=== PATIENT | female | born 1950 | race Caucasian/White ===

== ENCOUNTER → 2017-04-28 | Day surgery (SDC) | payer MEDICARE ==
[~2017-04-28] VITALS: Ht 160 cm; Wt 66.0 kg
[~2017-04-28] MED LIST: ACYC1POW8 PO; ASPI81TA81 PO; BUPIVACAINE HCL PF 0.5% 30 ML VIAL NERV BLOCK ONE; BUPIVACAINE HCL PF 0.5% 30 ML VIAL ONE; COQ150CA PO; DEXT 5%-NACL 0.45% 1000 ML INJ 1,000 ML IV SCH; DICY10CA12 PO; FAMOTIDINE 20 MG/2 ML VIAL ONE; GABA100C4 PO; IBUP800T23 PO; LACTATED RINGER'S 1000 ML INJ 1,000 ML ONE; LOSA100T PO; LOVA10TA PO; METF500T PO; MIDAZOLAM HCL 5 MG/5 ML VIAL ONE; MONT10TA4 PO; NORC5TAB PO; OMEP20CA2 PO; ONDANSETRON HCL 4 MG/2 ML VIAL IV PUSH ONE; POTA99TA12 PO; PROPOFOL 200 MG/20 ML AMP IV ONE; SERT-132 PO; SODIUM CHLORIDE 0.9% FLUSH 5 ML FLUSH IVF PRN; SODIUM CHLORIDE 0.9% FLUSH 5 ML FLUSH IVF SCH; ceFAZolin 2 GM PREMIX 50 ML ONE; ePHEDrine/NS 25 MG/5 ML SYR IV ONE; fentaNYL CITRATE 250 MCG/5 ML AMP ONE
[2017-04-28 06:51] VITALS: PULSE 65
[2017-04-28 07:33] LABS: HEMATOCRIT 38.7 % (35.0-46.0); MEAN CELL VOLUME 92.5 FL (80.0-100.0); MEAN CORPUSCULAR HEMOGLOBIN 31.5 PG (27.0-34.0); PLATELET COUNT 314 TH/MM3 (150-450); RED BLOOD COUNT 4.18 MIL/MM3 (4.00-5.30); RED CELL DISTRIBUTION WIDTH 13.3 % (11.6-17.2); REVIEW FLAG FINAL; WHITE BLOOD COUNT 7.1 TH/MM3 (4.0-11.0)
[2017-04-28 07:37] VITALS: BP 143/73; PULSE 65; RESP 18; TEMP 98.2; O2SAT 94
--- NOTE | 2017-04-28 07:55 | HP.UPD ---
H&P Update Date: Apr 28, 2017 Note The Pre-Admit History and Physical Examination regarding the above named patient was reviewed (including, but not limited to, vital signs, medications, allergies, co-morbid conditions), and upon re-examination it is noted that: Indicated with "X" x - the patient's condition has not significantly changed since the last examination. [] - the patient's condition has changed since the last examination. Changes: Shreya Elliott MD Apr 28, 2017 07:54
[2017-04-28 08:05] VITALS: PULSE 62
--- NOTE | 2017-04-28 09:55 | HHI.PR ---
Immediate Post Op Note Procedure Date: Apr 28, 2017 Pre Op Diagnosis: (1) Osteoarthritis of hand, primary localized Post Op Diagnosis: (1) Osteoarthritis of hand, primary localized Surgeon: Shreya Elliott Technical Project Manager(s): None. Procedure: Interpositional arthroplasty of left thumb carpometacarpal joint with tendon transfer. Anesthesia: General Drains: None Tourniquet time (min at mmHg) 57 minutes at 220 mmHg Patient to: PACU Patient Condition: Good Date/Time of Procedure: SEE SURGICAL CARE RECORD Shreya Elliott MD Apr 28, 2017 09:55
[2017-04-28 11:45] VITALS: BP 149/75; PULSE 85; RESP 16; TEMP 97.5; O2SAT 94
--- NOTE | 2017-04-28 13:28 | MP ---
cc: YOANA MATTA M.D. 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 PROCEDURE 1. Interposition arthroplasty of the left thumb carpometacarpal joint. 2. Tendon transfer to the left thumb carpometacarpal joint. ANESTHESIA General. SURGEON Yoana Matta MD INDICATIONS A 67-year-old female with severe degenerative joint disease of the left thumb CMC joint which did not respond to conservative management. FINDINGS There was a significant amount of arthrosis between the trapezium and the base of the thumb metacarpal. At the completion of the procedure the trapezium had been completely removed and a suspension arthroplasty effected using a portion of the flexor carpi radialis. TOURNIQUET TIME 57 minutes at 250 mmHg. DETAILS OF PROCEDURE The patient was seen preoperatively where the site and side were identified and marked. The patient was then taken to the operating room and placed in a supine position. Her identity was checked against the arm band and the consent form, site and side confirmed. A timeout was called prior to beginning the procedure. The left upper extremity was prepped with Hibiclens and draped in the usual sterile fashion. The area to be incised was outlined with a marking pen as a transverse incision at the dorsal base of the thumb as well as at the most distal volar portion of the flexor carpi radialis in the wrist and approximately 8.5 cm proximal to this. The arm was then exsanguinated and the tourniquet inflated to 250 mmHg. A 15 blade was used to make the incision at the base of the thumb down through the skin down to the subcutaneous tissue. Using loupe magnification, sharp and blunt dissection superficial vessels and nerves were identified and retracted exposing the capsule to the joint which was then opened. The trapezium was then from the ligamentous attachments using a curved osteotome. The trapezium was then removed in piecemeal. Once it was removed a 4 mm hole was drilled obliquely through the dorsal base of the thumb metacarpal at the joint. The entire area was copiously irrigated with saline after I removed a portion of the volar base of the thumb metacarpal with a rongeur. After irrigation attention was turned to the volar portion of the wrist where a transverse incision was made at the most distal volar portion of the flexor carpi radialis in the wrist and 8.5 cm proximal to this. Using sharp and blunt dissection the tendon sheath was identified distally and opened proximally and proximally the tendon was identified and the tendon sheath was opened distally. The ulnar 50% was incised with a 15 blade and a tendon passer was used to pass a strip of tendon from proximal to distal and then it was passed using a right-angle clamp into the original operative incision and the fibers was all the way to the attachment of the tendon at the base of the index metacarpal. A Hewson passer was then used to pass it through the base of the thumb metacarpal and the thumb was pulled distally, adducted upon the index metacarpal and then sewn upon itself. The remainder was then wrapped around the portion coming up from the base of the index metacarpal and it was secured with 3-0 Ethibond suture material. The capsule was then closed with the same suture material. Excellent stability was noted and the distal and proximal two wounds were closed first with 4-0 Vicryl and then all wounds were closed with Dermabond to the skin. Once the glue had dried in several layers Steri-Strips were applied and the tourniquet was released after 57 minutes of tourniquet time. Pressure was applied. After several minutes there was no evidence of any oozing and a dressing was applied using fluffy gauze, hand wrap and a thumb spica splint. The patient had been given a block to her upper extremity prior to surgery for postoperative pain. The patient was then taken from the operating room to the recovery room in satisfactory condition having tolerated the procedure well. Postoperative instructions include keeping the arm elevated, keeping the area clean and dry and returning in several days for follow-up. MD AC Melara/JESSE /10:02 AM /1:22 PM
--- NOTE | 2017-04-28 16:35 | EKG ---
Date Performed: 04/28/2017 Time Performed: 07:25:42 PTAGE: 67 years EKG: Sinus rhythm . Possible anterior infarct - age undetermined Abnormal ECG PREVIOUS TRACING : 02/23/2013 08.18 No significant change. DOCTOR: José Miguel Storey Interpretating Date/Time 04/28/2017 16:34:41
== END | disposition home or self-care (01) ==
LOC: PHSDC 06:10
PROVIDERS: ATTEND Specialist
DX: M19.042 Primary osteoarthritis, left hand (principal)
CPT/HCPCS: 25447; 26480; 36415; 85027; 93005; J0690; J2250; J2405; J3010; J7120

== ENCOUNTER 2017-08-18 14:20 | Observation (INO) | payer MEDICARE ==
[~2017-08-18] VITALS: Ht 160 cm; Wt 67.4 kg
[~2017-08-18 14:20] MED LIST changes: -BUPIVACAINE HCL PF 0.5% 30 ML VIAL NERV BLOCK ONE; -BUPIVACAINE HCL PF 0.5% 30 ML VIAL ONE; -DEXT 5%-NACL 0.45% 1000 ML INJ 1,000 ML IV SCH; -FAMOTIDINE 20 MG/2 ML VIAL ONE; -IBUP800T23 PO; -LACTATED RINGER'S 1000 ML INJ 1,000 ML ONE; -MIDAZOLAM HCL 5 MG/5 ML VIAL ONE; -NORC5TAB PO; -ONDANSETRON HCL 4 MG/2 ML VIAL IV PUSH ONE; -POTA99TA12 PO; -PROPOFOL 200 MG/20 ML AMP IV ONE; -SODIUM CHLORIDE 0.9% FLUSH 5 ML FLUSH IVF PRN; -SODIUM CHLORIDE 0.9% FLUSH 5 ML FLUSH IVF SCH; -ceFAZolin 2 GM PREMIX 50 ML ONE; -ePHEDrine/NS 25 MG/5 ML SYR IV ONE; -fentaNYL CITRATE 250 MCG/5 ML AMP ONE
[2017-08-18 14:31] VITALS: BP 156/73; PULSE 67; RESP 15; TEMP 97.8; O2SAT 97
--- NOTE | 2017-08-18 14:34 | PD ---
HPI Chief Complaint: chest tightness Time Seen by Provider: 14:28 Travel History International Travel<30 days: No Contact w/Intl Traveler<30days: No Traveled to known affect area: No History of Present Illness HPI PATIENT DEVELOPED CHEST TIGHTNESS THIS AM, LASTED FOR SEVERAL HOURS BUT EVENTUALLY WENT AWAY....THEN FELT SAME SYMPTOMS AGAIN AROUND 1PM THIS TIME, CHEST TIGHTNESS, RADIATING TO BACK, PRESSURE LIKE, ASSOC WITH SOB/DIAPHORESIS PCP [facility]....CARDIO:SALMAAKR PMHX: DM PFSH Past Medical History Arthritis: Yes Blood Disorders: No Cancer: No Cardiovascular Problems: No High Cholesterol: Yes Diabetes: Yes Diminished Hearing: No Endocrine: No GERD: Yes Glaucoma: No Genitourinary: No Hepatitis: No Hiatal Hernia: No Hypertension: No Immune Disorder: No Musculoskeletal: Yes (ARTHRITIS, BILATERAL HANDS, BACK PROBLEMS) Neurologic: No Psychiatric: Yes (CLAUSTROPHOBIC, DEPRESSION) Reproductive: No Respiratory: Yes (ASTHMA) Thyroid Disease: No PNEUMOCCOCAL Vaccine (Year): 2 Past Surgical History Abdominal Surgery: Yes (APPY) AICD: No Appendectomy: Yes Body Medical Devices: DENTAL IMPLANTS Cardiac Surgery: No Ear Surgery: No Endocrine Surgery: No Eye Surgery: No Genitourinary Surgery: Yes (BLADDER SLING 2011) Gynecologic Surgery: Yes (TOTAL HYSTERECTOMY 1993) Hysterectomy: Yes Joint Replacement: No Oral Surgery: Yes (IMPLANTS) Pacemaker: No Thoracic Surgery: Yes (BREAST BX X 2 (NEG)) Other Surgery: Yes (HYSTERECTOMY, APPY) Social History Alcohol Use: Yes (RARELY) Tobacco Use: No Substance Use: No Allergies-Medications (Allergen,Severity, Reaction): Coded Allergies: adhesive (Unverified Allergy, Severe, 08/18/17) amitriptyline (Unverified Allergy, Severe, 08/18/17) morphine (Unverified Allergy, Severe, Rash, 08/18/17) Reported Meds & Prescriptions Reported Meds & Active Scripts Active Reported Fluticasone Nasal [place] 50 Mcg/Act Naspr 50 Mcg EACH NARE BID 50 mcg/spray [[place]] 15 Mcg Budesonide Neb 0.5 Mg/2 Ml Neb 0.5 Mg NEB DAILY NEB Aspir-81 (Aspirin) 81 Mg Tabdr 1 Tab PO DIRECTED EVERY DAY EXCEPT FRIDAY AND FRIDAY. Coq10 (Coenzyme Q10 (Ubidecarenone)) 50 Mg Cap 100 Mg PO DAILY Dicyclomine (Dicyclomine HCl) 10 Mg Cap 10 Mg PO QID Lovastatin 10 Mg Tab 20 Mg PO HS Sertraline (Sertraline HCl) 50 Mg Tab 100 Mg PO HS Acyclovir (Acyclovir (Bulk)) 1 Pow Pow 400 Mg PO BID Gabapentin 100 Mg Cap 200 Mg PO HS Omeprazole 20 Mg Cap 20 Mg PO BID Montelukast (Montelukast Sodium) 10 Mg Tab 10 Mg PO HS Losartan (Losartan Potassium) 100 Mg Tab 100 Mg PO DAILY Metformin (Metformin HCl) 500 Mg Tab 500 Mg PO BIDPC With meals Review of Systems Except as stated in HPI: all other systems reviewed are Neg Cardiovascular: Positive: Chest Pain or Discomfort Physical Exam Narrative GENERAL: SKIN: Warm and dry. HEAD: Atraumatic. Normocephalic. EYES: Pupils equal and round. No scleral icterus. No injection or drainage. ENT: No nasal bleeding or discharge. Mucous membranes pink and moist. NECK: Trachea midline. No JVD. CARDIOVASCULAR: Regular rate and rhythm. RESPIRATORY: No accessory muscle use. Clear to auscultation. Breath sounds equal bilaterally. GASTROINTESTINAL: Abdomen soft, non-tender, nondistended. MUSCULOSKELETAL: Extremities without clubbing, cyanosis, or edema. No obvious deformities. NEUROLOGICAL: Awake and alert. No obvious cranial nerve deficits. Motor grossly within normal limits. Five out of 5 muscle strength in the arms and legs. Normal speech. PSYCHIATRIC: Appropriate mood and affect; insight and judgment normal. Data Data Last Documented VS Vital Signs Date Time Temp Pulse Resp B/P (MAP) Pulse Ox O2 Delivery O2 Flow Rate FiO2 08/18/17 14:50 97 Room Air 08/18/17 14:31 97.8 67 15 156/73 (100) Orders Orders Electrocardiogram (08/18/17 14:34) B-Type Natriuretic Peptide (08/18/17 14:34) Ckmb (Isoenzyme) Profile (08/18/17 14:34) Complete Blood Count With Diff (08/18/17 14:34) Comprehensive Metabolic Panel (08/18/17 14:34) Magnesium (Mg) (08/18/17 14:34) Prothrombin Time / Inr (Pt) (08/18/17 14:34) Act Partial Throm Time (Ptt) (08/18/17 14:34) Troponin I (08/18/17 14:34) Lipase (08/18/17 14:34) Chest, Single Ap (08/18/17 14:34) Ecg Monitoring (08/18/17 14:34) Bilateral Bp Monitoring (08/18/17 14:34) Iv Access Insert/Monitor (08/18/17 14:34) Oximetry (08/18/17 14:34) Oxygen Administration (08/18/17 14:34) Aspirin Chew (Aspirin Chew) (08/18/17 14:45) Nitroglycerin 2% Oint (Nitroglycerin 2% (08/18/17 14:45) Sodium Chlorid 0.9% 500 Ml Inj (Ns 500 M (08/18/17 14:45) Ct Pulmonary Angiogram (08/18/17 14:34) Iohexol 350 Inj (Omnipaque 350 Inj) (08/18/17 15:14) Admit Order (Ed Use Only) (08/18/17 15:46) Labs Laboratory Tests Test 08/18/17 14:35 White Blood Count 10.2 TH/MM3 Red Blood Count 4.18 MIL/MM3 Hemoglobin 13.2 GM/DL Hematocrit 38.7 % Mean Corpuscular Volume 92.6 FL Mean Corpuscular Hemoglobin 31.6 PG Mean Corpuscular Hemoglobin Concent 34.2 % Red Cell Distribution Width 12.7 % Platelet Count 334 TH/MM3 Mean Platelet Volume 7.4 FL Neutrophils (%) (Auto) 72.6 % Lymphocytes (%) (Auto) 20.0 % Monocytes (%) (Auto) 4.9 % Eosinophils (%) (Auto) 1.9 % Basophils (%) (Auto) 0.6 % Neutrophils # (Auto) 7.4 TH/MM3 Lymphocytes # (Auto) 2.0 TH/MM3 Monocytes # (Auto) 0.5 TH/MM3 Eosinophils # (Auto) 0.2 TH/MM3 Basophils # (Auto) 0.1 TH/MM3 CBC Comment DIFF FINAL Differential Comment Prothrombin Time 10.1 SEC Prothromb Time International Ratio 0.9 RATIO Activated Partial Thromboplast Time 26.3 SEC Blood Urea Nitrogen 16 MG/DL Creatinine 0.82 MG/DL Random Glucose 177 MG/DL Total Protein 7.3 GM/DL Albumin 3.7 GM/DL Calcium Level 8.6 MG/DL Magnesium Level 1.9 MG/DL Alkaline Phosphatase 92 U/L Aspartate Amino Transf (AST/SGOT) 18 U/L Alanine Aminotransferase (ALT/SGPT) 28 U/L Total Bilirubin 0.2 MG/DL Sodium Level 133 MEQ/L Potassium Level 3.6 MEQ/L Chloride Level 98 MEQ/L Carbon Dioxide Level 26.0 MEQ/L Anion Gap 9 MEQ/L Estimat Glomerular Filtration Rate 70 ML/MIN Total Creatine Kinase 68 U/L Troponin I LESS THAN 0.02 NG/ML B-Type Natriuretic Peptide 19 PG/ML Lipase 219 U/L MDM Medical Decision Making Medical Screen Exam Complete: Yes Emergency Medical Condition: Yes Medical Record Reviewed: Yes Interpretation(s) NSR 85, NORMAL INTERVALS, NO STEMI PATTERN Differential Diagnosis MO V PE V NONSTEMI V PNA V PULM EDEMA Narrative Course on evaluation no e/o pe,pna or gross stemi...however due to risk factors it is prudent to admit for observation and ensure no nonstemi present Diagnosis Primary Impression: cp r/o mi Bony Carney MD Aug 18, 2017 14:34
[2017-08-18] MEDS ORDERED: SODIUM CHLORIDE 0.9% FLUSH 10 ML FLUSH IVF PRN (14:45)
[2017-08-18] MEDS ORDERED: NITROGLYCERIN 2% OINT 1 GM PACKET TOP ONE (14:45)
[2017-08-18] MEDS ORDERED: ASPIRIN 81 MG CHEW TAB PO ONE (14:45)
[2017-08-18] MEDS ORDERED: SODIUM CHLORID 0.9% 500 ML INJ 500 ML IV ONE (14:45)
[2017-08-18] MEDS ORDERED: FLUT50SP EACH NARE (14:48)
[2017-08-18] MEDS ORDERED: [UNRECOGNIZED DRUG - OTHER] (14:48)
[2017-08-18] MEDS ORDERED: BUDE0.5S NEB (14:48)
[2017-08-18 14:49] LABS: AUTOMATED NEUTROPHIL # 7.4 TH/MM3 (1.8-7.7); BASOPHIL # 0.1 TH/MM3 (0-0.2); BASOPHIL % 0.6 % (0.0-2.0); EOSINOPHIL # 0.2 TH/MM3 (0-0.4); EOSINOPHIL % 1.9 % (0.0-4.0); HEMATOCRIT 38.7 % (35.0-46.0); HEMO FLAGS DIFF FINAL; MEAN CELL VOLUME 92.6 FL (80.0-100.0); MEAN CORPUSCULAR HEMOGLOBIN 31.6 PG (27.0-34.0); MEAN CORPUSCULAR HGB CONC 34.2 % (32.0-36.0); MONO % 4.9 % (0.0-8.0); NEUT % 72.6 % (16.0-70.0); PLATELET COUNT 334 TH/MM3 (150-450); RED BLOOD COUNT 4.18 MIL/MM3 (4.00-5.30); RED CELL DISTRIBUTION WIDTH 12.7 % (11.6-17.2); WHITE BLOOD COUNT 10.2 TH/MM3 (4.0-11.0)
[2017-08-18 14:50] VITALS: O2SAT 97
[2017-08-18 14:57] LABS: CHLORIDE 98 MEQ/L (98-107); POTASSIUM 3.6 MEQ/L (3.5-5.1); SODIUM (NA) 133 MEQ/L (136-145)
[2017-08-18 15:00] LABS: ANION GAP 9 MEQ/L (5-15)
[2017-08-18 15:01] LABS: APTT (PATIENT) 26.3 SEC (24.3-30.1); BLOOD UREA NITROGEN 16 MG/DL (7-18); INTERNATIONAL NORMALIZED RATIO 0.9 RATIO; MAGNESIUM 1.9 MG/DL (1.5-2.5); PROTHROMBIN TIME - PATIENT 10.1 SEC (9.8-11.6)
[2017-08-18 15:03] LABS: ALT (GPT) 28 U/L (10-53); AST (GOT) 18 U/L (15-37); GLOMERULAR FILTRATION RATE 70 ML/MIN (>89)
--- NOTE | 2017-08-18 15:04 | RADRPT ---
EXAM DATE/TIME: 08/18/2017 14:54 [facility] COMPARISON: No previous studies available for comparison. INDICATIONS : Chest pain, shortness of breath. MEDICAL HISTORY : Hypertension. Gastroesophageal reflux disease. Asthma. SURGICAL HISTORY : None. ENCOUNTER: Initial ACUITY: 1 day PAIN SCORE: 4/10 LOCATION: Bilateral chest FINDINGS: A single view of the chest demonstrates the lungs to be symmetrically aerated without evidence of mas s, infiltrate or effusion. The cardiomediastinal contours are unremarkable. Osseous structures are intact. CONCLUSION: 1. No acute cardiopulmonary disease. Ashish Sims MD on August 18, 2017 at 15:02 Board Certified Radiologist. This report was verified electronically.
[2017-08-18 15:05] LABS: TOTAL BILIRUBIN ADULT 0.2 MG/DL (0.2-1.0)
[2017-08-18 15:06] LABS: ALKALINE PHOSPHATASE 92 U/L (45-117)
[2017-08-18] MEDS ORDERED: IOHEXOL 350 MG/ML 10 ML VIAL (for RAD DIAG) IVCONTRAST ONE (15:14)
[2017-08-18 15:18] LABS: CREATINE KINASE 68 U/L (26-192)
--- NOTE | 2017-08-18 15:30 | RADRPT ---
EXAM DATE/TIME: 08/18/2017 15:05 [facility] COMPARISON: No previous studies available for comparison. INDICATIONS : Shortness of breath with right upper extremity pain radiaitng to back. Evaluate for pulmonary embolis m or dissection. IV CONTRAST: 65 cc Omnipaque 350 (iohexol) IV RADIATION DOSE: 13.77 CTDIvol (mGy) MEDICAL HISTORY : Hypertension. Gastroesophageal reflux disease. SURGICAL HISTORY : Appendectomy. Hysterectomy.Bladder sling. ENCOUNTER: Initial ACUITY: 1 day PAIN SCALE: 6/10 LOCATION: Right chest TECHNIQUE: Volumetric scanning of the chest was performed using a pulmonary embolism protocol MIP images were re constructed. Using automated exposure control and adjustment of the mA and/or kV according to patien t size, radiation dose was kept as low as reasonably achievable to obtain optimal diagnostic quality images. DICOM format image data is available electronically for review and comparison. Follow-up recommendations for detected pulmonary nodules are based at a minimum on nodule size and pa tient risk factors according to Fleischner Society Guidelines. FINDINGS: PULMONARY ARTERIES: No filling defects are seen in the pulmonary arteries through the segmental level. LUNGS: There is no consolidation or pneumothorax . No concerning pulmonary nodule is visualized. PLEURAE: There is no pleural thickening or pleural effusion. MEDIASTINUM: There is good visualization of the great vessels of the middle mediastinum. No evidence of mediastin al or hilar adenopathy/mass. MUSCULOSKELETAL: Within normal limits for patient age. MISCELLANEOUS: The visualized upper abdominal organs demonstrate no acute abnormality. CONCLUSION: No evidence of pulmonary embolism Last [place] MD on August 18, 2017 at 15:17 Board Certified Radiologist. This report was verified electronically.
[2017-08-18] MEDS ORDERED: MAGNESIUM HYDROXIDE SUSP 30 ML CUP PO PRN (16:00)
[2017-08-18] MEDS ORDERED: NALOXONE HCL 0.4 MG/ML AMP IV PUSH PRN (16:00)
[2017-08-18] MEDS ORDERED: SODIUM CHLORIDE 0.9% FLUSH 10 ML FLUSH IV FLUSH PRN (16:00)
[2017-08-18] MEDS ORDERED: ACETAMINOPHEN/HYDROcodone 325 MG/10 MG TAB PO PRN (16:00)
[2017-08-18] MEDS ORDERED: ACETAMINOPHEN/HYDROcodone 325 MG/5 MG TAB PO PRN (16:00)
[2017-08-18] MEDS ORDERED: ONDANSETRON HCL 4 MG/2 ML VIAL IVP PRN (16:00)
[2017-08-18 16:58] VITALS: BP_SYST 125; BP_SYST 127; BP_DIAS 59; BP_DIAS 67; PULSE 74; O2SAT 94
[2017-08-18 17:00] VITALS: BP 130/67; PULSE 70; RESP 16; TEMP 97.9; O2SAT 98
[2017-08-18] MEDS ORDERED: ENOXAPARIN SODIUM 40 MG/0.4 ML SYRINGE SQ SCH (17:00)
--- NOTE | 2017-08-18 17:02 | HHI.HP ---
[facility] Primary Care Physician Monique Alves MD Admission Diagnosis CP R/O RI Diagnoses: (1) Chest pain Diagnosis: Principal Travel History International Travel<30 Days: No Contact w/Intl Traveler <30 Da: No Traveled to Known Affected Are: No History of Present Illness Mrs. Raines is a 67-year-old female. She comes in to the ER with a report of chest pain which has occurred this morning and this afternoon. She has no prior cardiac history but does have a strong family history including myocardial infarctions and both of her younger brothers and CVA and arterial sclerosis in her father. This morning she had an episode of chest pain which was thought related to eating. The pain started as a tightness in the center of her chest and lasted for several hours. This afternoon the tightness came back and was more intense and she had a pain which radiated to her back and describes it as pressure-like in addition to the pain. She had shortness of breath and diaphoresis with her second episode. She does report she has been feeling fatigued in the last 2-3 days and has been having increase in symptoms of her baseline gastroesophageal reflux disease. As an outpatient she follows with Dr. Pa. Additional risk factors for her are a baseline of diabetes mellitus type 2 and hyperlipidemia. She has a distant past smoking history but quit about 27 years ago. When seen in the ER she has no immediate chest pain, no nausea, no vomiting. She denies any cough. She does have some musculoskeletal pains of her right shoulder, which can be induced with movements , and which does cause some sharp shooting pains in her chest. Review of Systems Constitutional: COMPLAINS OF: Diaphoretic episodes, DENIES: Fever, Chills, Change in appetite, Night Sweats Eyes: DENIES: Blurred vision, Diplopia, Eye inflammation Respiratory: COMPLAINS OF: Shortness of breath, DENIES: Apneas, Cough, Snoring , Wheezing, Hemoptysis, Sputum production Cardiovascular: COMPLAINS OF: Chest pain, DENIES: Palpitations, Syncope Gastrointestinal: DENIES: Abdominal pain, Black stools, Bloody stools Musculoskeletal: DENIES: Joint pain, Muscle aches, Stiffness Integumentary: DENIES: Abnormal pigmentation, Pruritus, Rash Hematologic/lymphatic: DENIES: Bruising, Lymphadenopathy Immunologic/allergic: DENIES: Eczema, Urticaria Neurologic: COMPLAINS OF: Headache, DENIES: Abnormal gait, Paresthesias Psychiatric: COMPLAINS OF: Hallucinations, DENIES: Anxiety, Confusion Past Family Social History Past Medical History Prothrombin mutation (hypercoagulopathy) Diabetes mellitus type 2 Hyperlipidemia Osteoarthritis Gastroesophageal reflux disease Depression Asthma Past Surgical History Appendectomy Dental implants Bladder sling Total hysterectomy History of breast biopsy Reported Medications Reported Meds & Active Scripts Active Reported Fluticasone Nasal [place] 50 Mcg/Act Naspr 50 Mcg EACH NARE BID 50 mcg/spray [[place]] 15 Mcg Budesonide Neb 0.5 Mg/2 Ml Neb 0.5 Mg NEB DAILY NEB Aspir-81 (Aspirin) 81 Mg Tabdr 1 Tab PO DIRECTED EVERY DAY EXCEPT FRIDAY AND FRIDAY. Coq10 (Coenzyme Q10 (Ubidecarenone)) 50 Mg Cap 100 Mg PO DAILY Dicyclomine (Dicyclomine HCl) 10 Mg Cap 10 Mg PO QID Lovastatin 10 Mg Tab 20 Mg PO HS Sertraline (Sertraline HCl) 50 Mg Tab 100 Mg PO HS Acyclovir (Acyclovir (Bulk)) 1 Pow Pow 400 Mg PO BID Gabapentin 100 Mg Cap 200 Mg PO HS Omeprazole 20 Mg Cap 20 Mg PO BID Montelukast (Montelukast Sodium) 10 Mg Tab 10 Mg PO HS Losartan (Losartan Potassium) 100 Mg Tab 100 Mg PO DAILY Metformin (Metformin HCl) 500 Mg Tab 500 Mg PO BIDPC With meals Allergies: Coded Allergies: adhesive (Unverified Allergy, Severe, 08/18/17) amitriptyline (Unverified Allergy, Severe, 08/18/17) morphine (Unverified Allergy, Severe, Rash, 08/18/17) Family History Father had diabetes mellitus type 2, CVA, and arterial sclerosis Mother had diabetes mellitus type 2 and hypertension Both of her brothers had abuse mellitus type II, coronary artery disease, and RI Social History Past history smoking, quit 27 years ago Occasional alcohol use No illicit drug abuse Physical Exam Vital Signs Vital Signs Date Time Temp Pulse Resp B/P (MAP) Pulse Ox O2 Delivery O2 Flow Rate FiO2 08/18/17 14:50 97 Room Air 08/18/17 14:50 Room Air 08/18/17 14:31 97.8 67 15 156/73 (100) 97 Physical Exam GENERAL: NAD, A&Ox3 HEAD: Normocephalic. NECK: Supple, trachea midline. No lymphadenopathy. EYES: No scleral icterus. No injection or drainage. CARDIOVASCULAR: Regular rate and rhythm without murmurs, gallops, or rubs. RESPIRATORY: Breath sounds equal bilaterally. No accessory muscle use. GASTROINTESTINAL: Abdomen soft, non-tender, nondistended. MUSCULOSKELETAL: No cyanosis, or edema. SKIN: Warm and dry. NEURO: No focal neurological deficitis. Laboratory Laboratory Tests Test 08/18/17 14:35 White Blood Count 10.2 Red Blood Count 4.18 Hemoglobin 13.2 Hematocrit 38.7 Mean Corpuscular Volume 92.6 Mean Corpuscular Hemoglobin 31.6 Mean Corpuscular Hemoglobin Concent 34.2 Red Cell Distribution Width 12.7 Platelet Count 334 Mean Platelet Volume 7.4 Neutrophils (%) (Auto) 72.6 Lymphocytes (%) (Auto) 20.0 Monocytes (%) (Auto) 4.9 Eosinophils (%) (Auto) 1.9 Basophils (%) (Auto) 0.6 Neutrophils # (Auto) 7.4 Lymphocytes # (Auto) 2.0 Monocytes # (Auto) 0.5 Eosinophils # (Auto) 0.2 Basophils # (Auto) 0.1 CBC Comment DIFF FINAL Differential Comment Prothrombin Time 10.1 Prothromb Time International Ratio 0.9 Activated Partial Thromboplast Time 26.3 Blood Urea Nitrogen 16 Creatinine 0.82 Random Glucose 177 Total Protein 7.3 Albumin 3.7 Calcium Level 8.6 Magnesium Level 1.9 Alkaline Phosphatase 92 Aspartate Amino Transf (AST/SGOT) 18 Alanine Aminotransferase (ALT/SGPT) 28 Total Bilirubin 0.2 Sodium Level 133 Potassium Level 3.6 Chloride Level 98 Carbon Dioxide Level 26.0 Anion Gap 9 Estimat Glomerular Filtration Rate 70 Total Creatine Kinase 68 Troponin I LESS THAN 0.02 B-Type Natriuretic Peptide 19 Lipase 219 Result Diagram: 08/18/17 1435 08/18/17 1435 Caprini VTE Risk Assessment Caprini VTE Risk Assessment: Mod/High Risk (score >= 2) Caprini Risk Assessment Model Point Value = 1 Point Value = 2 Point Value = 3 Point Value = 5 Age 41-60 Minor surgery BMI > 25 kg/m2 Swollen legs Varicose veins or History of unexplained or recurrent spontaneous Oral contraceptives or hormone replacement Sepsis (< 1 month) Serious lung disease, including pneumonia (< 1 month) Abnormal pulmonary function Acute myocardial infarction Congestive heart failure (< 1 month) History of inflammatory bowel disease Medical patient at bed rest Age 61-74 Arthroscopic surgery Major open surgery (> 45 min) Laparoscopic surgery (> 45 min) Malignancy Confined to bed (> 72 hours) Immobilizing plaster cast Central venous access Age >= 75 History of VTE Family history of VTE Factor V Leiden Prothrombin [id number] Lupus anticoagulant Anticardiolipin antibodies Elevated serum homocysteine Heparin-induced thrombocytopenia Other congenital or acquired thrombophilia Stroke (< 1 month) Elective arthroplasty Hip, pelvis, or leg fracture Acute spinal cord injury (< 1 month) Prophylaxis Regimen Total Risk Factor Score Risk Level Prophylaxis Regimen 0-1 Low Early ambulation 2 Moderate Order ONE of the following: *Sequential Compression Device (SCD) *Heparin 5000 units SQ BID 3-4 Higher Order ONE of the following medications: *Heparin 5000 units SQ TID *Enoxaparin/Lovenox 40 mg SQ daily (WT < 150 kg, CrCl > 30 mL/min) *Enoxaparin/Lovenox 30 mg SQ daily (WT < 150 kg, CrCl > 10-29 mL/min) *Enoxaparin/Lovenox 30 mg SQ BID (WT < 150 kg, CrCl > 30 mL/min) AND/OR *Sequential Compression Device (SCD) 5 or more Highest Order ONE of the following medications: *Heparin 5000 units SQ TID (Preferred with Epidurals) *Enoxaparin/Lovenox 40 mg SQ daily (WT < 150 kg, CrCl > 30 mL/min) *Enoxaparin/Lovenox 30 mg SQ daily (WT < 150 kg, CrCl > 10-29 mL/min) *Enoxaparin/Lovenox 30 mg SQ BID (WT < 150 kg, CrCl > 30 mL/min) AND *Sequential Compression Device (SCD) Assessment and Plan Problem List: (1) Prothrombin mutation ICD Code: D68.52 - Prothrombin gene mutation (2) Diabetes mellitus type 2 in nonobese ICD Code: E11.9 - Type 2 diabetes mellitus without complications (3) Chest pain ICD Code: R07.9 - Chest pain, unspecified Assessment and Plan Assessment and plan 67-year-old female admitted secondary to chest pain Chest pain Evaluate for ACS Follow cardiac enzymes Follow EKGs Aspirin daily When necessary oxygen When necessary norco for pain, (morphine allergy) Nitroglycerin patch and when necessary nitroglycerin SL Follow on telemetry Cardiology consult Prothrombin mutation (hypercoagulopathy) This increases the risk for ACS as an etiology Continue aspirin Continue Lovenox Diabetes mellitus type 2 This is an independent risk factor for coronary artery disease Follow blood sugars Insulin sliding scale Diabetic diet Hyperlipidemia No change to baseline treatments Fasting lipid profile in a.m. Gastroesophageal reflux disease May be contributory Continue omeprazole Depression No change to baseline treatments Asthma No exacerbation Follow clinically DVT prophylaxis Sandro Osorio MD Aug 18, 2017 17:02
[2017-08-18] MEDS ORDERED: GLUCAGON 1 MG/ML VIAL OTHER PRN (17:15)
[2017-08-18] MEDS ORDERED: DEXTROSE 50% IN WATER 50 ML VIAL(D50) IV PUSH PRN (17:15)
[2017-08-18] MEDS: DICYCLOMINE HCL 10 MG CAP PO SCH ×2 (18:21→21:47)
[2017-08-18] MEDS ORDERED: MONTELUKAST SODIUM 10 MG TAB PO SCH (21:00)
[2017-08-18] MEDS: INSULIN ASPART SUPPLEMENTAL SCALE SQ SCH (21:00)
[2017-08-18] MEDS ORDERED: GABAPENTIN 100 MG CAP PO SCH (21:00)
[2017-08-18] MEDS: FLUTICASONE PROPIONATE 50 MCG/ACT 16 GM NASAL SPRAY EACH NARE SCH (21:00)
[2017-08-18] MEDS ORDERED: PRAVASTATIN SOD 20 MG TAB PO SCH (21:00)
[2017-08-18] MEDS ORDERED: SERTRALINE HCL 100 MG TAB PO SCH (21:00)
[2017-08-18 21:45] VITALS: PULSE 81
[2017-08-18] MEDS: ACYCLOVIR 200 MG CAP PO SCH (21:47)
[2017-08-18] MEDS: SODIUM CHLORIDE 0.9% FLUSH 10 ML FLUSH IV FLUSH SCH (21:48)
[2017-08-18 22:00] VITALS: BP 121/66; PULSE 73; RESP 17; TEMP 97; O2SAT 95
[2017-08-19] VITALS: BP 109/59; PULSE 65; RESP 17; TEMP 97.3; O2SAT 94
[2017-08-19 04:00] VITALS: BP 119/60; PULSE 67; RESP 16; TEMP 98; O2SAT 94
[2017-08-19 06:25] LABS: AUTOMATED NEUTROPHIL # 4.3 TH/MM3 (1.8-7.7); BASOPHIL % 0.5 % (0.0-2.0); EOSINOPHIL # 0.2 TH/MM3 (0-0.4); HEMATOCRIT 37.1 % (35.0-46.0); HEMO FLAGS DIFF FINAL; LYMPH % 33.8 % (9.0-44.0); LYMPHOCYTE # 2.5 TH/MM3 (1.0-4.8); MEAN CELL VOLUME 91.8 FL (80.0-100.0); MEAN CORPUSCULAR HEMOGLOBIN 30.5 PG (27.0-34.0); MEAN CORPUSCULAR HGB CONC 33.3 % (32.0-36.0); MONO % 6.7 % (0.0-8.0); PLATELET COUNT 283 TH/MM3 (150-450); RED BLOOD COUNT 4.04 MIL/MM3 (4.00-5.30); RED CELL DISTRIBUTION WIDTH 12.4 % (11.6-17.2); WHITE BLOOD COUNT 7.5 TH/MM3 (4.0-11.0)
[2017-08-19 06:50] LABS: ALKALINE PHOSPHATASE 78 U/L (45-117); ALT (GPT) 22 U/L (10-53); ANION GAP 7 MEQ/L (5-15); AST (GOT) 12 U/L (15-37); BICARBONATE 28.5 MEQ/L (21.0-32.0); BLOOD UREA NITROGEN 14 MG/DL (7-18); CHLORIDE 106 MEQ/L (98-107); GLOMERULAR FILTRATION RATE 91 ML/MIN (>89); SODIUM (NA) 141 MEQ/L (136-145); TOTAL BILIRUBIN ADULT 0.3 MG/DL (0.2-1.0)
[2017-08-19 08:00] VITALS: BP 129/57; PULSE 62; PULSE 74; RESP 18; TEMP 97.7; O2SAT 94
[2017-08-19] MEDS: INSULIN ASPART SUPPLEMENTAL SCALE SQ SCH (08:00)
[2017-08-19] MEDS ORDERED: RESP: BUDESONIDE 0.5 MG/2 ML NEB NEB SCH (08:00)
--- NOTE | 2017-08-19 08:17 | EKG ---
Date Performed: 08/18/2017 Time Performed: 14:24:26 PTAGE: 67 years EKG: Sinus rhythm LOW QRS VOLTAGE IN PRECORDIAL LEADS BORDERLINE ECG NO PREVIOUS TRACING DOCTOR: Shae Donaldson Interpretating Date/Time 08/19/2017 08:14:20
--- NOTE | 2017-08-19 08:18 | EKG ---
Date Performed: 08/19/2017 Time Performed: 02:09:35 PTAGE: 67 years EKG: Normal Sinus rhythm POSSIBLE ANTERIOR MYOCARDIAL INFARCTION Nonspecific ST-T changes BORDERLINE ECG PREVIOUS TRACING : 08/18/2017 20.07 Compared to prior tracing no significant change DOCTOR: Shae Donaldson Interpretating Date/Time 08/19/2017 08:15:13
--- NOTE | 2017-08-19 08:18 | EKG ---
Date Performed: 08/18/2017 Time Performed: 20:07:25 PTAGE: 67 years EKG: Sinus rhythm NORMAL ECG PREVIOUS TRACING : 08/18/2017 14.24 Compared to prior tracing no significant change DOCTOR: Shae Donaldson Interpretating Date/Time 08/19/2017 08:14:29
[2017-08-19] MEDS ORDERED: LOSARTAN 50 MG TAB PO SCH (09:00)
[2017-08-19] MEDS ORDERED: NON-FORMULARY DRUG (Coenzyme Q10 (Ubidecarenone) (Coq10) 100 MG) PO SCH (09:00)
[2017-08-19] MEDS: FLUTICASONE PROPIONATE 50 MCG/ACT 16 GM NASAL SPRAY EACH NARE SCH (09:00)
[2017-08-19] MEDS ORDERED: PANTOPRAZOLE SOD 40 MG DELAYED RELEASE TAB PO SCH (09:00)
[2017-08-19] MEDS ORDERED: ASPIRIN EC 81 MG TABEC PO SCH (09:00)
[2017-08-19] MEDS: SODIUM CHLORIDE 0.9% FLUSH 10 ML FLUSH IV FLUSH SCH (09:49)
[2017-08-19] MEDS: DICYCLOMINE HCL 10 MG CAP PO SCH (09:50)
[2017-08-19] MEDS: ACYCLOVIR 200 MG CAP PO SCH (09:50)
--- NOTE | 2017-08-19 09:52 | HHI.DS ---
Discharge Summary Admission Date Aug 18, 2017 at 15:47 Discharge Date: Aug 19, 2017 Admitting Diagnosis CP R/O HI (1) Prothrombin mutation ICD Code: D68.52 - Prothrombin gene mutation Diagnosis: Principal (2) Diabetes mellitus type 2 in nonobese ICD Code: E11.9 - Type 2 diabetes mellitus without complications Diagnosis: Principal (3) Chest pain ICD Code: R07.9 - Chest pain, unspecified Diagnosis: Principal Procedures None Brief History - From Admission Mrs. Raines is a 67-year-old female. She comes in to the ER with a report of chest pain which has occurred this morning and this afternoon. She has no prior cardiac history but does have a strong family history including myocardial infarctions and both of her younger brothers and CVA and arterial sclerosis in her father. This morning she had an episode of chest pain which was thought related to eating. The pain started as a tightness in the center of her chest and lasted for several hours. This afternoon the tightness came back and was more intense and she had a pain which radiated to her back and describes it as pressure-like in addition to the pain. She had shortness of breath and diaphoresis with her second episode. She does report she has been feeling fatigued in the last 2-3 days and has been having increase in symptoms of her baseline gastroesophageal reflux disease. As an outpatient she follows with Dr. Pa. Additional risk factors for her are a baseline of diabetes mellitus type 2 and hyperlipidemia. She has a distant past smoking history but quit about 27 years ago. When seen in the ER she has no immediate chest pain, no nausea, no vomiting. She denies any cough. She does have some musculoskeletal pains of her right shoulder, which can be induced with movements , and which does cause some sharp shooting pains in her chest. CBC/BMP: 08/19/17 0520 08/19/17 0520 Significant Findings Laboratory Tests Test 08/18/17 14:35 08/18/17 20:14 08/19/17 02:30 08/19/17 05:20 Neutrophils (%) (Auto) 72.6 % (16.0-70.0) Random Glucose 177 MG/DL (74-106) Sodium Level 133 MEQ/L (136-145) Estimat Glomerular Filtration Rate 70 ML/MIN (>89) Troponin I LESS THAN 0.02 NG/ML LESS THAN 0.02 NG/ML LESS THAN 0.02 NG/ML Aspartate Amino Transf (AST/SGOT) 12 U/L (15-37) Hospital Course Mrs. Raines is a 67-year-old female. She came in secondary to chest pain. Risk factors are prothrombin mutation, diabetes mellitus type 2, and a family history of coronary artery disease. She was evaluated with serial cardiac enzymes and EKGs. These have resulted as negative. Cardiology has evaluated this patient and recommends outpatient stress testing. She has been cleared by cardiology for discharge with follow-up in their office. This point she is medically stable without evidence of myocardial infarction and clear for discharge home today, to follow-up with cardiology. Pt Condition on Discharge: Stable Discharge Disposition: Discharge Home Discharge Time: <= 30 minutes Discharge Instructions DIET: Follow Instructions for: As Tolerated, No Restrictions Activities you can perform: Regular-No Restrictions Follow up Referrals: Cardiology - 1 Week PCP Follow-up - 2 Weeks Continued Medications: Acyclovir (Bulk) (Acyclovir) 1 Pow Pow 400 MG PO BID Aspirin DR (Aspir-81) 81 Mg Tabdr 1 TAB PO DIRECTED EVERY DAY EXCEPT FRIDAY AND FRIDAY. Budesonide Neb (Budesonide Neb) 0.5 Mg/2 Ml Neb 0.5 MG NEB DAILY NEB for Breathing Treatment, #30 NEBULE 0 Refills Coenzyme Q10 (Ubidecarenone) (Coq10) 50 Mg Cap 100 MG PO DAILY Dicyclomine (Dicyclomine) 10 Mg Cap 10 MG PO QID for Bowel Management, CAP 0 Refills Fluticasone Nasal [place] (Fluticasone Nasal [place]) 50 Mcg/Act Naspr 50 MCG EACH NARE BID for Allergy Management, #1 BOTTLE 0 Refills 50 mcg/spray Gabapentin (Gabapentin) 100 Mg Cap 200 MG PO HS, #90 CAP 0 Refills Losartan (Losartan) 100 Mg Tab 100 MG PO DAILY for Blood Pressure Management, #30 TAB 0 Refills Lovastatin (Lovastatin) 10 Mg Tab 20 MG PO HS for Cholesterol Management, #30 TAB 0 Refills Metformin (Metformin) 500 Mg Tab 500 MG PO BIDPC for Blood Sugar Management, #60 TAB 0 Refills With meals Montelukast (Montelukast) 10 Mg Tab 10 MG PO HS, #30 TAB 0 Refills Omeprazole (Omeprazole) 20 Mg Cap 20 MG PO BID Sertraline (Sertraline) 50 Mg Tab 100 MG PO HS, #30 TAB 0 Refills [[place]ale] () 15 MCG Sandro Jack MD Aug 19, 2017 09:52
[2017-08-19 09:58] LABS: HDL CHOLESTEROL 45.3 MG/DL (40.0-60.0); LDL CHOLESTEROL 64 MG/DL (0-99)
[2017-08-19] MEDS ORDERED: INFLUENZA VIRUS VACCINE (QUADRIVALENT) 0.5 ML SYR IM ONE (10:00)
--- NOTE | 2017-08-19 10:01 | MB ---
cc: MIRYAM MCELROY M.D., MARK B. M.D. GUIRGIS, WAGID F. M.D. DATE OF CONSULTATION 08/19/2017 REASON FOR CONSULTATION Chest pain HISTORY Ms. Raines is a 67-year-old white female patient known to Dr. Mcelroy who presented to the emergency room yesterday with complaints of chest discomfort. Describing this today, the patient says that she had some shortness of breath and some pain in the right upper chest radiating to her right shoulder and arm yesterday morning. She says she was not feeling real well after getting up yesterday morning and she was making the bed when experienced this symptom. It was associated with some shortness of breath and persisted. She says the symptoms persisted throughout most of the day yesterday and she finally came to the emergency room for evaluation. In the emergency room, she was asymptomatic and has remained asymptomatic since that time. She says she did not sleep well last night, but otherwise is feeling well. She has been taking her medications as directed at home. She gets some mild dyspnea on exertion, but that is longstanding and really no worse recently. She last saw Dr. Mcelroy about a month ago she tells me. I obtained records from his office for review. PAST MEDICAL HISTORY Includes: 1. Prothrombin mutation 2. Hypercoagulopathy 3. Diabetes mellitus type 2 4. Hyperlipidemia 5. Osteoarthrosis 6. GERD 7. Depression 8. Asthma PAST SURGICAL HISTORY 1. Bladder surgery 2012 2. Hysterectomy 1993 3. Carpal tunnel surgery 2010 4. Trigger finger surgery 2010 5. Dental surgery 2012 6. Bone spur left hand April 2017 FAMILY HISTORY Father had diabetes mellitus, heart disease, CAD and hypertension. Mother hypertension. ALLERGIES MORPHINE, ADHESIVE TAPE, AMITRIPTYLINE AND ELAVIL. MEDICATIONS 1. She received influenza vaccine on admission. 2. Aspirin 81 mg daily 3. Cozaar 100 mg daily 4. Protonix 40 mg daily 5. Pulmicort 0.5 mg nebulizers daily 6. Flonase one spray each nare b.i.d. 7. Neurontin 200 mg at bedtime 8. Pravachol 20 mg at bedtime 9. Singulair 10 mg at bedtime 10. Zoloft 100 mg at bedtime 11. Zovirax 4 mg b.i.d. 12. NovoLog insulin sliding scale 13. Bentyl 10 mg q.i.d. 14. Lovenox 40 mg subcu q.24 h REVIEW OF SYSTEMS Denies lower extremity edema or claudication. Denies palpitations, lightheadedness or syncope. Denies exertional chest discomfort. Except for that mentioned in HPI, a complete 12-point review of systems is otherwise negative. PHYSICAL EXAM Physical exam reveals a middle-aged, anxious white female lying in bed otherwise in no distress. VITAL SIGNS: Blood pressure 129/57 mmHg, heart rate is 62 regular, respiratory rate 18, temperature 97.7, ox saturation 94% on room air. HEAD: Normocephalic and atraumatic. EYES, EARS, NOSE AND THROAT: Pupils equal and react to light. Sclerae anicteric. Extraocular movements intact. NECK: The neck is supple. There is no adenopathy. No jugular venous distention at 90 degrees. Carotid upstrokes normal. No bruits. Thyroid exam is normal. LUNGS: Clear. HEART: PMI is not displaced. S1-S2 are normal. An S4 is heard. No S3 gallop, murmurs or rubs. ABDOMEN: Benign. EXTREMITIES: No cyanosis, clubbing or edema. Perfusion is adequate in the upper and lower extremities. No femoral bruits. EKG shows a sinus rhythm, inferior Q-waves probably insignificant, poor R-wave progression. Denies old anteroseptal infarct. Abnormal EKG. No change on serial EKGs since admission and no change compared to an EKG available from Dr. Mcelroy's office from May 29, 2017. This appears to be chronic abnormalities. Chest x-ray, no acute cardiopulmonary disease. A CT angiogram from yesterday shows no evidence of pulmonary embolism. LABORATORY DATA Cardiac enzymes negative x3 sets, most recent troponin-I less than 0.02, CPK 38. AST 22. Electrolytes normal. Lipid panel was pending. Coags were normal. CBC is normal. On some recent testing, there is a an echocardiogram report from Dr. Mcelroy's office September 10, 2016 showing left ventricular ejection fraction of 65%. Left atrial size upper limits of normal. No significant valvular disease. There was some mild mitral and aortic sclerosis, but no hemodynamically significant valvular disease. Left ventricular diastolic dysfunction. Right ventricular systolic pressure normal at 26 mmHg. There was a mention of a cardiac catheterization performed June 24, 2014 showing mild epicardial CAD with mild LVH and normal systolic function and subtle mitral valve prolapse. IMPRESSION 1. Atypical chest pain currently resolved suspect noncardiac etiology. 2. Abnormal EKG, chronic and stable. 3. Chronic dyspnea on exertion, stable. 4. Hypertension, well-controlled. 5. Mixed hyperlipidemia. 6. Anxiety disorder. RECOMMENDATIONS The patient is stable from the cardiovascular standpoint at this time. I think she is at low cardiovascular risk and can be safely discharged to home with followup with Dr. Mcelroy next week. I have discussed the plans and findings and recommendations with the patient and nursing staff here in detail today. I am available the remainder of the week if she has any recurrent problems to see her as an outpatient, otherwise we will have her followup with Dr. Mcelroy when he is back in the office next week. Thank you for allowing us to participate in the care of this patient. MD JAK Turner/SIENNA /9:23 AM /9:45 AM
[2017-08-19] MEDS ORDERED: PANTOPRAZOLE SOD 40 MG DELAYED RELEASE TAB PO ONE (11:00)
== END 2017-08-19 11:30 | disposition home or self-care (01) ==
LOC: PHED 14:20 → PHEDA 15:47 → PH5A 17:24
PROVIDERS: ADMIT Hospitalist; ATTEND Hospitalist
DX: R07.89 Other chest pain (principal); D68.52 Prothrombin gene mutation; R06.02 Shortness of breath; R61 Generalized hyperhidrosis; R53.83 Other fatigue; R06.09 Other forms of dyspnea; R94.31 Abnormal electrocardiogram [ECG] [EKG]; I10 Essential (primary) hypertension; E78.2 Mixed hyperlipidemia; J45.909 Unspecified asthma, uncomplicated; E11.9 Type 2 diabetes mellitus without complications; K21.9 Gastro-esophageal reflux disease without esophagitis; F32.9 Major depressive disorder, single episode, unspecified; M19.90 Unspecified osteoarthritis, unspecified site; Z87.891 Personal history of nicotine dependence; Z79.899 Other long term (current) drug therapy; Z79.82 Long term (current) use of aspirin; Z79.84 Long term (current) use of oral hypoglycemic drugs; Z82.49 Family history of ischemic heart disease and other diseases of the circulatory system; Z88.5 Allergy status to narcotic agent
CPT/HCPCS: 71010; 71275; 80053; 80061; 82550; 82948; 83690; 83735; 83880; 84484; 85025; 85610; 85730; 93005; 94664; 96360; 96372; 99285; G0378; J1650; J7040; J7626; Q9967

== ENCOUNTER 2017-11-14 17:25 | Inpatient (IN) | payer MEDICARE ==
[~2017-11-14] VITALS: Ht 160 cm; Wt 67.8 kg
[2017-11-14] VITALS (8 sets, daily range): BP systolic 104–126; BP diastolic 52–69; PULSE 87–103; RESP 16; TEMP 98.6–103; O2SAT 91–99
[~2017-11-14 17:25] MED LIST changes: +BUDE0.5S NEB; +FLUT50SP EACH NARE; +[UNRECOGNIZED DRUG - OTHER]
[2017-11-14] MEDS ORDERED: IOHEXOL 350 MG/ML 10 ML VIAL (for RAD DIAG) IVCONTRAST ONE (17:26)
[2017-11-14] MEDS ORDERED: SODIUM CHLOR 0.9% 1000 ML INJ 800 ML IV ONE (17:40)
[2017-11-14] MEDS ORDERED: SODIUM CHLOR 0.9% 1000 ML INJ 1,000 ML IV ONE (17:40)
[2017-11-14] MEDS ORDERED: ACETAMINOPHEN 325 MG TAB PO ONE (17:45)
[2017-11-14] MEDS ORDERED: ONDANSETRON HCL 4 MG/2 ML VIAL IV PUSH ONE (17:45)
--- NOTE | 2017-11-14 17:47 | PD ---
HPI Chief Complaint: fever Time Seen by Provider: 17:37 Travel History International Travel<30 days: No Contact w/Intl Traveler<30days: No Traveled to known affect area: No History of Present Illness HPI 67-year-old female here for evaluation of fever and chills. Symptoms started this afternoon with sudden onset. She has had a nonproductive cough for the last couple of days and reports that she has been taking care of her mother who has been sick with upper respiratory symptoms. She feels nauseous but has not vomited. She has a slight upset stomach. No chest pain or dyspnea. She also has [id number] head and neck discomfort. No rash. No urinary symptoms. PFSH Past Medical History Arthritis: Yes Asthma: Yes Blood Disorders: No Depression: Yes Cancer: No Cardiovascular Problems: No High Cholesterol: Yes Diabetes: Yes Diminished Hearing: No Endocrine: No Gastrointestinal Disorders: Yes (IRRITABLE BOWEL, GERD) GERD: Yes Glaucoma: No Genitourinary: No Hepatitis: No Hiatal Hernia: No Hypertension: Yes Immune Disorder: No Musculoskeletal: Yes (ARTHRITIS, BILATERAL HANDS, BACK PROBLEMS) Neurologic: No Psychiatric: Yes (CLAUSTROPHOBIC) Reproductive: No Respiratory: Yes (ASTHMA) Thyroid Disease: No PNEUMOCCOCAL Vaccine (Year): 2 Past Surgical History Abdominal Surgery: Yes (APPY) AICD: No Appendectomy: Yes Body Medical Devices: DENTAL IMPLANTS Cardiac Surgery: No Ear Surgery: No Endocrine Surgery: No Eye Surgery: No Genitourinary Surgery: Yes (BLADDER SLING 2011) Gynecologic Surgery: Yes (TOTAL HYSTERECTOMY 1993) Hysterectomy: Yes (TOTAL 1993) Joint Replacement: No Oral Surgery: Yes (IMPLANTS) Pacemaker: No Thoracic Surgery: Yes (BREAST BX X 2 (NEG)) Other Surgery: Yes (HYSTERECTOMY, APPY) Social History Alcohol Use: Yes (RARELY) Tobacco Use: No Substance Use: No Allergies-Medications (Allergen,Severity, Reaction): Coded Allergies: adhesive (Verified Allergy, Severe, 11/14/17) amitriptyline (Verified Allergy, Severe, 11/14/17) morphine (Verified Allergy, Severe, Rash, 11/14/17) Reported Meds & Prescriptions Reported Meds & Active Scripts Active Reported Aspirin Low Dose (Aspirin) 81 Mg Chew 81 Mg CHEW DAILY Estrace Vaginal (Estradiol) 0.01% Cream 1 Appl VAGINAL HS Fluticasone Nasal [place] 50 Mcg/Act Naspr 50 Mcg EACH NARE BID 50 mcg/spray Budesonide Neb 0.5 Mg/2 Ml Neb 0.5 Mg NEB DAILY NEB Aspir-81 (Aspirin) 81 Mg Tabdr 1 Tab PO DIRECTED EVERY DAY EXCEPT FRIDAY AND FRIDAY. Coq10 (Coenzyme Q10 (Ubidecarenone)) 50 Mg Cap 100 Mg PO DAILY Dicyclomine (Dicyclomine HCl) 10 Mg Cap 10 Mg PO QID Lovastatin 10 Mg Tab 20 Mg PO HS Sertraline (Sertraline HCl) 50 Mg Tab 100 Mg PO HS Acyclovir (Acyclovir (Bulk)) 1 Pow Pow 400 Mg PO BID Gabapentin 100 Mg Cap 200 Mg PO HS Omeprazole 20 Mg Cap 20 Mg PO BID Montelukast (Montelukast Sodium) 10 Mg Tab 10 Mg PO HS Losartan (Losartan Potassium) 100 Mg Tab 100 Mg PO DAILY Metformin (Metformin HCl) 500 Mg Tab 500 Mg PO BIDPC With meals Review of Systems Except as stated in HPI: all other systems reviewed are Neg Physical Exam Narrative GENERAL: Well-developed, well-nourished, no apparent distress. SKIN: Focused skin assessment warm/dry. No rash. HEAD: Atraumatic. Normocephalic. EYES: Pupils equal and round. No scleral icterus. No injection or drainage. ENT: No nasal bleeding or discharge. Mucous membranes pink and dry. Normal pharynx. NECK: Trachea midline. No JVD. No nuchal rigidity. CARDIOVASCULAR: Tachycardic, rate 100. No murmur appreciated. RESPIRATORY: No accessory muscle use. Clear to auscultation. Breath sounds equal bilaterally. GASTROINTESTINAL: Abdomen soft, non-tender, nondistended. MUSCULOSKELETAL: No obvious deformities. No clubbing. No cyanosis. No edema. NEUROLOGICAL: Awake and alert. No obvious cranial nerve deficits. Motor grossly within normal limits. Normal speech. PSYCHIATRIC: Appropriate mood and affect; insight and judgment normal. Data Data Last Documented VS Vital Signs Date Time Temp Pulse Resp B/P (MAP) Pulse Ox O2 Delivery O2 Flow Rate FiO2 11/14/17 20:06 98.8 89 16 105/59 (74) 93 Room Air 11/14/17 18:52 2.00 Orders Orders Sepsis Workup Initiated (11/14/17 ) Complete Blood Count With Diff (11/14/17 17:40) Comprehensive Metabolic Panel (11/14/17 17:40) Prothrombin Time / Inr (Pt) (11/14/17 17:40) Act Partial Throm Time (Ptt) (11/14/17 17:40) Lactic Acid Sepsis Protocol (11/14/17 17:40) Lipase (11/14/17 17:40) Urinalysis - C+S If Indicated (11/14/17 17:40) Influenzae A/B Antigen (11/14/17 17:40) Blood Culture (11/14/17 17:40) Chest, Single Ap (11/14/17 17:40) Blood Glucose (11/14/17 17:40) Ecg Monitoring (11/14/17 17:40) Iv Access Insert/Monitor (11/14/17 17:40) Oximetry (11/14/17 17:40) Oxygen Administration (11/14/17 17:40) Acetaminophen (Tylenol) (11/14/17 17:45) Sodium Chlor 0.9% 1000 Ml Inj (Ns 1000 M (11/14/17 17:40) Sodium Chlor 0.9% 1000 Ml Inj (Ns 1000 M (11/14/17 17:40) Ondansetron Inj (Zofran Inj) (11/14/17 17:45) Ct Abd/Pel W Iv Contrast(Rout) (11/14/17 18:31) Ct Pulmonary Angiogram (11/14/17 19:08) Iohexol 350 Inj (Omnipaque 350 Inj) (11/14/17 17:26) Ceftriaxone Inj (Rocephin Inj) (11/14/17 20:30) Azithromycin Inj (Zithromax Inj) (11/14/17 20:30) Labs Laboratory Tests Test 11/14/17 17:40 11/14/17 20:00 White Blood Count 8.5 TH/MM3 Red Blood Count 4.12 MIL/MM3 Hemoglobin 12.4 GM/DL Hematocrit 37.3 % Mean Corpuscular Volume 90.5 FL Mean Corpuscular Hemoglobin 30.2 PG Mean Corpuscular Hemoglobin Concent 33.3 % Red Cell Distribution Width 13.0 % Platelet Count 347 TH/MM3 Mean Platelet Volume 6.5 FL Neutrophils (%) (Auto) 78.6 % Lymphocytes (%) (Auto) 10.8 % Monocytes (%) (Auto) 4.6 % Eosinophils (%) (Auto) 5.8 % Basophils (%) (Auto) 0.2 % Neutrophils # (Auto) 6.7 TH/MM3 Lymphocytes # (Auto) 0.9 TH/MM3 Monocytes # (Auto) 0.4 TH/MM3 Eosinophils # (Auto) 0.5 TH/MM3 Basophils # (Auto) 0.0 TH/MM3 CBC Comment DIFF FINAL Differential Comment Prothrombin Time 9.6 SEC Prothromb Time International Ratio 0.9 RATIO Activated Partial Thromboplast Time 27.3 SEC Blood Urea Nitrogen 19 MG/DL Creatinine 0.86 MG/DL Random Glucose 104 MG/DL Total Protein 7.5 GM/DL Albumin 3.4 GM/DL Calcium Level 9.0 MG/DL Alkaline Phosphatase 109 U/L Aspartate Amino Transf (AST/SGOT) 29 U/L Alanine Aminotransferase (ALT/SGPT) 39 U/L Total Bilirubin 0.3 MG/DL Sodium Level 131 MEQ/L Potassium Level 4.5 MEQ/L Chloride Level 97 MEQ/L Carbon Dioxide Level 24.5 MEQ/L Anion Gap 10 MEQ/L Estimat Glomerular Filtration Rate 66 ML/MIN Lactic Acid Level 1.7 mmol/L Lipase 197 U/L Urine Color STRAW Urine Turbidity CLEAR Urine pH 5.5 Urine Specific [place] 1.022 Urine Protein NEG mg/dL Urine Glucose (UA) NEG mg/dL Urine Ketones NEG mg/dL Urine Occult Blood TRACE Urine Nitrite NEG Urine Bilirubin NEG Urine Leukocyte Esterase NEG Urine RBC 0-3 /hpf Urine WBC 0-2 /hpf Urine Squamous Epithelial Cells 0-5 /hpf Urine Bacteria NONE /hpf Microscopic Urinalysis Comment CULT NOT INDICATED MDM Medical Decision Making Medical Screen Exam Complete: Yes Emergency Medical Condition: Yes Medical Record Reviewed: No Interpretation(s) EKG: Sinus, rate 100, leftward axis, normal intervals, low QRS voltages in precordial leads, no acute ischemic abnormality. Differential Diagnosis Sepsis, pneumonia, influenza, viral illness, UTI Narrative Course Initial vital signs show heart rate 102, blood pressure 104/69, pulse ox 91% on room air, oral temp of 103F. CBC: WBC 8.5, hemoglobin 12.4, hematocrit 37.3, platelets 347, neutrophils 78.6% . CMP is remarkable for sodium 131, chloride 97, BUN 19, otherwise unremarkable. Lactic acid is 1.7. Lipase is 197. UA is not suggestive of UTI. Chest x-ray: No acute abnormality. Influenza swab is negative. CT abdomen/pelvis: CONCLUSION: 1. Nonspecific, nonobstructive bowel gas pattern which may represent a mild ileus or gastroenteritis. 2. Mild streaky opacity in both lung bases. Please see CT pulmonary angiogram from this date for further details. CT Pulmonary Angiogram: CONCLUSION: 1. No evidence of pulmonary emboli 2. New mild streaky interstitial opacities throughout both lungs which may be infectious or represent pulmonary edema. Patient and the patient's significant other were made aware of all findings. Her O2 saturation is 91% on room air. She is in no respiratory distress. There are slight crackles bilaterally, no wheezes. She denies any significant history of cardiac disease, however there is cardiac disease in her family. Her EKG shows low QRS voltages in precordial leads, otherwise normal sinus rhythm with no acute ischemic abnormalities. CT pulmonary angiogram findings of streaky interstitial opacities are more likely infectious as the patient presented with a fever of 103F and has had a cough for the last several days. The cough is nonproductive. Patient is also complaining of generalized weakness and tries malaise. She'll be started on IV antibiotics and admitted for further treatment and evaluation of pneumonia, generalized weakness, sepsis. Case discussed with hospitalist Dr Easley who will admit the patient to the hospitalist service. Diagnosis Primary Impression: Sepsis Qualified Codes: A41.9 - Sepsis, unspecified organism Additional Impressions: Pneumonia Qualified Codes: J18.9 - Pneumonia, unspecified organism Hypoxia Admitting Information Admitting Physician Requests: Admit Rodolfo Arriaza MD Nov 14, 2017 17:46
--- NOTE | 2017-11-14 18:03 | RADRPT ---
EXAM DATE/TIME: 11/14/2017 17:46 [facility] COMPARISON: CHEST SINGLE AP, August 18, 2017, 14:54. INDICATIONS : Fever. MEDICAL HISTORY : Hypertension. Gastroesophageal reflux disease SURGICAL HISTORY : Appendectomy. Hysterectomy.Bladder sling ENCOUNTER: Initial ACUITY: 1 day PAIN SCORE: 5/10 LOCATION: Bilateral chest FINDINGS: There are no new focal pleural or parenchymal opacities. Cardiomediastinal contours are within normal limits. Bony thorax is intact. CONCLUSION: 1. No acute abnormality or significant interval change. Ashish Sims MD on November 14, 2017 at 18:00 Board Certified Radiologist. This report was verified electronically.
[2017-11-14 18:04] LABS: CHLORIDE 97 MEQ/L (98-107); SODIUM (NA) 131 MEQ/L (136-145)
[2017-11-14] MEDS ORDERED: ESTR42.5V VAGINAL (18:04)
[2017-11-14] MEDS ORDERED: ASPI81CH6 CHEW (18:04)
[2017-11-14 18:08] LABS: ALBUMIN 3.4 GM/DL (3.4-5.0); BICARBONATE 24.5 MEQ/L (21.0-32.0); BLOOD UREA NITROGEN 19 MG/DL (7-18); GLUCOSE,RANDOM 104 MG/DL (74-106); INTERNATIONAL NORMALIZED RATIO 0.9 RATIO; LIPASE 197 U/L (73-393); PROTHROMBIN TIME - PATIENT 9.6 SEC (9.8-11.6)
[2017-11-14 18:11] LABS: ALT (GPT) 39 U/L (10-53); AST (GOT) 29 U/L (15-37); CREATININE 0.86 MG/DL (0.50-1.00); GLOMERULAR FILTRATION RATE 66 ML/MIN (>89)
[2017-11-14 18:13] LABS: TOTAL BILIRUBIN ADULT 0.3 MG/DL (0.2-1.0); TOTAL PROTEIN 7.5 GM/DL (6.4-8.2)
[2017-11-14 18:14] LABS: ALKALINE PHOSPHATASE 109 U/L (45-117)
[2017-11-14 18:15] LABS: AUTOMATED NEUTROPHIL # 6.7 TH/MM3 (1.8-7.7); BASOPHIL % 0.2 % (0.0-2.0); EOSINOPHIL # 0.5 TH/MM3 (0-0.4); EOSINOPHIL % 5.8 % (0.0-4.0); HEMATOCRIT 37.3 % (35.0-46.0); HEMOGLOBIN 12.4 GM/DL (11.6-15.3); LYMPH % 10.8 % (9.0-44.0); LYMPHOCYTE # 0.9 TH/MM3 (1.0-4.8); MEAN CELL VOLUME 90.5 FL (80.0-100.0); MEAN CORPUSCULAR HEMOGLOBIN 30.2 PG (27.0-34.0); MEAN CORPUSCULAR HGB CONC 33.3 % (32.0-36.0); MEAN PLATELET VOLUME 6.5 FL (7.0-11.0); MONO % 4.6 % (0.0-8.0); MONOCYTE # 0.4 TH/MM3 (0-0.9); NEUT % 78.6 % (16.0-70.0); PLATELET COUNT 347 TH/MM3 (150-450); RED BLOOD COUNT 4.12 MIL/MM3 (4.00-5.30); WHITE BLOOD COUNT 8.5 TH/MM3 (4.0-11.0)
--- NOTE | 2017-11-14 20:04 | RADRPT ---
EXAM DATE/TIME: 11/14/2017 19:26 [facility] COMPARISON: CHEST SINGLE AP, November 14, 2017, 17:46. CT PULMONARY ANGIOGRAM, August 18, 2017, 15:05. INDICATIONS : Fever. IV CONTRAST: 96 cc Omnipaque 350 (iohexol) IV ; Cumulative dose for multiple exams. RADIATION DOSE: 10.39 CTDIvol (mGy) MEDICAL HISTORY : Gastroesophageal reflux disease. Inflammatory bowel disease. Diabetes mellitus type 2. SURGICAL HISTORY : Appendectomy. Hysterectomy. ENCOUNTER: Initial ACUITY: 1 day PAIN SCALE: 0/10 LOCATION: chest TECHNIQUE: Volumetric scanning of the chest was performed using a pulmonary embolism protocol MIP images were re constructed. Using automated exposure control and adjustment of the mA and/or kV according to patien t size, radiation dose was kept as low as reasonably achievable to obtain optimal diagnostic quality images. DICOM format image data is available electronically for review and comparison. Follow-up recommendations for detected pulmonary nodules are based at a minimum on nodule size and pa tient risk factors according to Fleischner Society Guidelines. FINDINGS: PULMONARY ARTERIES: No filling defects are seen in the pulmonary arteries through the segmental level. LUNGS: There is no focal consolidation or pneumothorax . The streaky interstitial opacities are noted throu ghout both lungs which are new from the prior study. No concerning pulmonary nodule is visualized. PLEURAE: There is no pleural thickening or pleural effusion. MEDIASTINUM: There is good visualization of the great vessels of the middle mediastinum. No evidence of mediastin al or hilar adenopathy/mass. MUSCULOSKELETAL: Within normal limits for patient age. MISCELLANEOUS: The visualized upper abdominal organs demonstrate no acute abnormality. CONCLUSION: 1. No evidence of pulmonary emboli 2. New mild streaky interstitial opacities throughout both lungs which may be infectious or represent pulmonary edema. Toby Ramirez MD on November 14, 2017 at 19:58 Board Certified Radiologist. This report was verified electronically.
[2017-11-14 20:08] LABS: BILIRUBIN, URINE NEG (NEG); BLOOD, URINE TRACE (NEG); GLUCOSE,URINE NEG (NEG); KETONE, URINE NEG (NEG); NITRITE,URINE NEG (NEG); PH, URINE 5.5 (5.0-8.5); URINE LEUKOCYTE ESTERASE NEG (NEG)
--- NOTE | 2017-11-14 20:09 | RADRPT ---
EXAM DATE/TIME: 11/14/2017 19:26 [place] COMPARISON: No previous studies available for comparison. INDICATIONS : Fever and abdominal pain IV CONTRAST: 96 cc Omnipaque 350 (iohexol) IV ; Cumulative dose for multiple exams. ORAL CONTRAST: No oral contrast ingested. RADIATION DOSE: 8.22 CTDIvol (mGy) MEDICAL HISTORY : Diabetes mellitus type 2. Gastroesophageal reflux disease. Inflammatory bowel disease. SURGICAL HISTORY : Hysterectomy. Appendectomy. ENCOUNTER: Initial ACUITY: 1 day PAIN SCALE: 6/10 LOCATION: abdomen TECHNIQUE: Volumetric scanning of the abdomen and pelvis was performed. Using automated exposure control and ad justment of the mA and/or kV according to patient size, radiation dose was kept as low as reasonably achievable to obtain optimal diagnostic quality images. DICOM format image data is available electro nically for review and comparison. FINDINGS: LOWER LUNGS: Mild streaky interstitial opacities are present in both lung bases. LIVER: Homogeneous density without lesion. There is no dilation of the biliary tree. No calcified gallston es. SPLEEN: Normal size without lesion. PANCREAS: Within normal limits. KIDNEYS: Normal in size and shape. There is no mass, stone or hydronephrosis. ADRENAL GLANDS: Within normal limits. VASCULAR: There is no aortic aneurysm. BOWEL/MESENTERY: There are multiple loops of nondilated air-containing small bowel with multiple small air-fluid level s. The colon is unremarkable. There is no focal wall thickening or inflammatory change. There is no f ree air or fluid. ABDOMINAL WALL: Within normal limits. RETROPERITONEUM: There is no lymphadenopathy. BLADDER: No wall thickening or mass. REPRODUCTIVE: Within normal limits. INGUINAL: There is no lymphadenopathy or hernia. MUSCULOSKELETAL: Within normal limits for patient age. CONCLUSION: 1. Nonspecific, nonobstructive bowel gas pattern which may represent a mild ileus or gastroenteritis. 2. Mild streaky opacity in both lung bases. Please see CT pulmonary angiogram from this date for furt her details. Toby Ramirez MD on November 14, 2017 at 20:04 Board Certified Radiologist. This report was verified electronically.
[2017-11-14 20:12] LABS: URINE COLOR STRAW (YELLW/STRAW)
[2017-11-14 20:14] LABS: RBC, URINE 0-3 /hpf (0-3); SQUAMOUS EPITHELIAL CELL URINE 0-5 /hpf (0-5); WBC, URINE 0-2 /hpf (0-5)
[2017-11-14] MEDS ORDERED: AZITHROMYCIN INJ 500 MG in SODIUM CHLOR 0.9% 250 ML INJ 250 ML IV ONE (20:30)
[2017-11-14] MEDS ORDERED: cefTRIAXone INJ 1,000 MG in SODIUM CHLORIDE 0.9% INJ 100 ML IV ONE (20:30)
[2017-11-14] MEDS ORDERED: GLUCAGON 1 MG/ML VIAL OTHER PRN (20:30)
[2017-11-14] MEDS ORDERED: DEXTROSE 50% IN WATER 50 ML VIAL(D50) IV PUSH PRN (20:30)
[2017-11-14] MEDS ORDERED: SODIUM CHLORIDE 0.9% FLUSH 10 ML FLUSH IV FLUSH PRN (20:30)
[2017-11-14] MEDS ORDERED: BISACODYL 10 MG SUPP RECTAL PRN (21:00)
[2017-11-14] MEDS: INSULIN ASPART SUPPLEMENTAL SCALE SQ SCH (21:00)
[2017-11-14] MEDS: BUDESONIDE-FORMOTEROL 160/4.5 MCG INHALER INH SCH (21:00)
[2017-11-14] MEDS ORDERED: LACTULOSE SYRUP 20 GM/30 ML CUP PO PRN (21:00)
[2017-11-14] MEDS ORDERED: MAGNESIUM HYDROXIDE SUSP 30 ML CUP PO PRN (21:00)
[2017-11-14] MEDS ORDERED: ACETAMINOPHEN 325 MG TAB PO PRN (21:00)
[2017-11-14] MEDS ORDERED: SENNOSIDES 8.6 MG TAB PO PRN (21:00)
[2017-11-14] MEDS: DOCUSATE SODIUM 50 MG/SENNA 8.6 MG TAB PO SCH (21:36)
[2017-11-14] MEDS: guaiFENesin E.R. 600 MG TAB PO SCH (21:36)
[2017-11-14] MEDS: SODIUM CHLOR 0.9% 1000 ML INJ 1,000 ML IV SCH (23:23)
[2017-11-14] MEDS: ACETAMINOPHEN/HYDROcodone 325 MG/5 MG TAB PO PRN (23:24)
[2017-11-14] MEDS: ACYCLOVIR 200 MG CAP PO SCH (23:24)
[2017-11-14] MEDS: PANTOPRAZOLE SOD 20 MG DELAYED RELEASE TAB PO SCH (23:24)
[2017-11-14] MEDS: SERTRALINE HCL 50 MG TAB PO SCH (23:25)
[2017-11-14] MEDS: PRAVASTATIN SOD 10 MG TAB PO SCH (23:25)
[2017-11-14] MEDS: GABAPENTIN 100 MG CAP PO SCH (23:25)
[2017-11-14] MEDS: MONTELUKAST SODIUM 10 MG TAB PO SCH (23:25)
[2017-11-14] MEDS: SODIUM CHLORIDE 0.9% FLUSH 10 ML FLUSH IV FLUSH SCH (23:25)
[2017-11-14] MEDS: RESP: ALBUTEROL 2.5 MG/IPRATROPIUM 0.5 MG NEB (PRN) NEB (23:37)
[2017-11-15] VITALS (8 sets, daily range): BP systolic 115–153; BP diastolic 55–86; PULSE 77–91; RESP 18–21; TEMP 96.6–101.4; O2SAT 91–94
[2017-11-15] MEDS ORDERED: ONDANSETRON HCL 4 MG/2 ML VIAL IVP PRN
[2017-11-15] MEDS: INSULIN ASPART SUPPLEMENTAL SCALE SQ SCH ×4 (07:54→23:13)
[2017-11-15] MEDS: SODIUM CHLOR 0.9% 1000 ML INJ 1,000 ML IV SCH ×2 (07:56→17:38)
[2017-11-15 08:43] LABS: AUTOMATED NEUTROPHIL # 6.1 TH/MM3 (1.8-7.7); BASOPHIL % 0.3 % (0.0-2.0); EOSINOPHIL # 0.4 TH/MM3 (0-0.4); EOSINOPHIL % 5.3 % (0.0-4.0); HEMATOCRIT 33.4 % (35.0-46.0); HEMOGLOBIN 10.9 GM/DL (11.6-15.3); LYMPH % 14.9 % (9.0-44.0); LYMPHOCYTE # 1.3 TH/MM3 (1.0-4.8); MEAN CELL VOLUME 91.7 FL (80.0-100.0); MEAN CORPUSCULAR HGB CONC 32.7 % (32.0-36.0); MEAN PLATELET VOLUME 6.5 FL (7.0-11.0); MONO % 6.6 % (0.0-8.0); MONOCYTE # 0.6 TH/MM3 (0-0.9); NEUT % 72.9 % (16.0-70.0); PLATELET COUNT 302 TH/MM3 (150-450); RED BLOOD COUNT 3.64 MIL/MM3 (4.00-5.30); RED CELL DISTRIBUTION WIDTH 13.2 % (11.6-17.2); WHITE BLOOD COUNT 8.4 TH/MM3 (4.0-11.0)
[2017-11-15] MEDS: BUDESONIDE-FORMOTEROL 160/4.5 MCG INHALER INH SCH (09:00)
[2017-11-15] MEDS: FLUTICASONE PROPIONATE 50 MCG/ACT 16 GM NASAL SPRAY EACH NARE SCH ×2 (09:00→21:54)
[2017-11-15] MEDS: SODIUM CHLORIDE 0.9% FLUSH 10 ML FLUSH IV FLUSH SCH ×2 (09:00→23:14)
[2017-11-15 09:14] LABS: ALBUMIN 2.7 GM/DL (3.4-5.0); ALKALINE PHOSPHATASE 86 U/L (45-117); ALT (GPT) 32 U/L (10-53); AST (GOT) 18 U/L (15-37); BICARBONATE 29.8 MEQ/L (21.0-32.0); BLOOD UREA NITROGEN 10 MG/DL (7-18); CALCIUM 8.2 MG/DL (8.5-10.1); CHLORIDE 107 MEQ/L (98-107); CREATININE 0.54 MG/DL (0.50-1.00); GLOMERULAR FILTRATION RATE 113 ML/MIN (>89); GLUCOSE,RANDOM 92 MG/DL (74-106); SODIUM (NA) 142 MEQ/L (136-145); TOTAL BILIRUBIN ADULT 0.4 MG/DL (0.2-1.0); TOTAL PROTEIN 6.3 GM/DL (6.4-8.2)
--- NOTE | 2017-11-15 09:15 | HHI.HP ---
[facility] Service [facility] Primary Care Physician Monique Alves MD Admission Diagnosis Sepsis, Pneumonia, Hypoxia Diagnoses: (1) Sepsis Chief Complaint: Fever and chills Travel History International Travel<30 Days: No Contact w/Intl Traveler <30 Da: No Traveled to Known Affected Are: No Sepsis Criteria SIRS Criteria (2 or more): Temp > 100.9 or < 96.8, Heart rate over 90 Sepsis Criteria (SIRS+source): Infect source susp/known Criteria Outcome: Meets sepsis criteria History of Present Illness Written by Martha Weber, acting as scribe for Dr. Zurita on 11/15/17 at 09:10. Ms. Raines is a 67-year-old female patient with a known medical history of HTN , hyperlipidemia and IBS who presented to the ED with complaints of sudden onset of fever and chills x 1 day. Patient states that yesterday during the afternoon she noticed sudden chills and fever, TMAX at home was 103. She does admit to feeling tired and weak for one week. Has had a nonproductive cough with associated right sided chest discomfort, worse with deep inspiration. Denies any radiation of pain, characterizes the pain as "soreness". Denies any vomiting. Does admit to nausea but has resolved now. Denies any recent hemoptysis. Patient states she has been caring for her mother who has also been hospitalized with similar symptoms. She states she has been taking Tylenol for the muscle aches, fever and fatigue with little relief. At time of assessment patient does complain of weakness and fatigue. Does complain of current fever and diaphoresis. Continued cough, producing right sided chest pain. Has been eating and drinking today, denies any nausea or vomiting. Denies any rash. Denies any dysuria. Review of Systems Constitutional: COMPLAINS OF: Diaphoretic episodes, Fatigue, Fever, Chills Eyes: DENIES: Diplopia Respiratory: COMPLAINS OF: Cough, Shortness of breath, DENIES: Sputum production Cardiovascular: COMPLAINS OF: Chest pain Gastrointestinal: COMPLAINS OF: Nausea, DENIES: Abdominal pain, Bloody stools, Constipation, Diarrhea, Vomiting Musculoskeletal: COMPLAINS OF: Muscle aches Integumentary: DENIES: Rash Hematologic/lymphatic: DENIES: Bruising Psychiatric: COMPLAINS OF: Anxiety Except as stated in HPI: all other systems reviewed are Neg Past Family Social History Past Medical History Arthritis Asthma Depression Hyperlipidemia IBS GERD Hypertension Prothrombin gene mutation Past Surgical History Appendectomy Dental implants Bladder sling 2012 Hysterectomy Breast biopsy x 2 Reported Medications Active Reported Aspirin Low Dose (Aspirin) 81 Mg Chew 81 Mg CHEW DAILY Estrace Vaginal (Estradiol) 0.01% Cream 1 Appl VAGINAL HS Fluticasone Nasal [place] 50 Mcg/Act Naspr 50 Mcg EACH NARE BID 50 mcg/spray Budesonide Neb 0.5 Mg/2 Ml Neb 0.5 Mg NEB DAILY NEB Aspir-81 (Aspirin) 81 Mg Tabdr 1 Tab PO DIRECTED EVERY DAY EXCEPT FRIDAY AND FRIDAY. Coq10 (Coenzyme Q10 (Ubidecarenone)) 50 Mg Cap 100 Mg PO DAILY Dicyclomine (Dicyclomine HCl) 10 Mg Cap 10 Mg PO QID Lovastatin 10 Mg Tab 20 Mg PO HS Sertraline (Sertraline HCl) 50 Mg Tab 100 Mg PO HS Acyclovir (Acyclovir (Bulk)) 1 Pow Pow 400 Mg PO BID Gabapentin 100 Mg Cap 300 Mg PO HS Omeprazole 20 Mg Cap 20 Mg PO BID Montelukast (Montelukast Sodium) 10 Mg Tab 10 Mg PO HS Losartan (Losartan Potassium) 100 Mg Tab 100 Mg PO DAILY Metformin (Metformin HCl) 500 Mg Tab 500 Mg PO BIDPC With meals Allergies: Coded Allergies: adhesive (Verified Allergy, Severe, 11/14/17) amitriptyline (Verified Allergy, Severe, 11/14/17) morphine (Verified Allergy, Severe, Rash, 11/14/17) Active Ordered Medications Current Medications Medications (Trade) Dose Ordered Sig/Jessica Route Start Time Stop Time Status Last Admin Ceftriaxone Sodium 1000 mg/ Sodium Chloride 100 ml @ 200 mls/hr Q24H IV 11/15/17 22:00 Azithromycin 500 mg/Sodium Chloride 250 ml @ 250 mls/hr Q24H IV 11/15/17 21:00 (D50w (Vial) Inj) 50 ml UNSCH PRN IV PUSH 11/14/17 20:30 (Glucagon Inj) 1 mg UNSCH PRN OTHER 12/29/17 20:30 (NovoLOG SUPPLEMENTAL SCALE) 1 ACHS SLIDING SCALE SQ 11/14/17 21:00 (Duoneb Neb) 1 ampule Q4HR NEB PRN NEB 11/14/17 00:00 11/14/17 23:37 (Mucinex Er) 600 mg BID PO 11/14/17 21:00 11/14/17 21:36 (Symbicort 160-4.5 Mcg Inh) 2 puff Q12HR INH 11/14/17 21:00 Sodium Chloride 1,000 ml @ 100 mls/hr Q10H IV 11/14/17 20:29 11/15/17 07:56 (NS Flush) 2 ml UNSCH PRN IV FLUSH 11/14/17 20:30 (NS Flush) 2 ml BID IV FLUSH 11/14/17 21:00 11/14/17 23:25 (Zofran Inj) 4 mg Q6H PRN IVP 11/15/17 00:00 (Tylenol) 650 mg Q6HR PRN PO 11/14/17 21:00 (Purdum 5-325 Mg) 1 tab Q4H PRN PO 11/14/17 20:30 11/14/17 23:24 ([place] 10-325 Mg) 1 tab Q4H PRN PO 11/14/17 20:30 (Anel-Colace) 1 tab BID PO 11/14/17 21:00 11/14/17 21:36 (Milk Of Magnesia Liq) 30 ml Q12HR PRN PO 11/14/17 21:00 (Senokot) 17.2 mg Q12HR PRN PO 11/14/17 21:00 (Dulcolax Supp) 10 mg DAILY PRN RECTAL 11/14/17 21:00 (Lactulose Liq) 30 ml DAILY PRN PO 11/14/17 21:00 (Aspirin Chew) 81 mg DAILY CHEW 11/15/17 09:00 (Bentyl) 10 mg QID PO 11/15/17 09:00 (Flonase Frantz Spr) 1 spray BID EACH NARE 11/15/17 09:00 (Neurontin) 200 mg HS PO 11/14/17 23:00 11/14/17 23:25 (Cozaar) 100 mg DAILY PO 11/15/17 09:00 (Pravachol) 20 mg HS PO 11/14/17 23:00 11/14/17 23:25 (Singulair) 10 mg HS PO 11/14/17 23:00 11/14/17 23:25 (Zoloft) 100 mg HS PO 11/14/17 23:00 11/14/17 23:25 (Zovirax) 400 mg BID PO 11/14/17 23:00 11/14/17 23:24 (Protonix) 20 mg BID PO 11/14/17 23:00 11/14/17 23:24 Family History Paternal medical history significant for DM, at 62 years old Mother is healthy. Brothers with DM and cardiovascular disease. Social History Denies any current tobacco use, quit 27 years ago. Rare alcohol use. Denies any illicit drug use. Physical Exam Vital Signs Vital Signs Date Time Temp Pulse Resp B/P (MAP) Pulse Ox O2 Delivery O2 Flow Rate FiO2 11/15/17 07:50 98.2 78 20 153/86 (108) 91 11/15/17 04:00 97.9 77 18 115/56 (75) 93 11/15/17 00:12 91 11/15/17 00:00 99.2 79 18 117/55 (75) 94 11/14/17 23:35 94 21 11/14/17 22:03 87 16 112/67 (82) 96 Nasal Cannula 2.00 11/14/17 20:06 98.8 89 16 105/59 (74) 93 Room Air 11/14/17 19:07 98.8 98 16 99 11/14/17 18:52 98.6 95 16 126/52 (76) 98 Nasal Cannula 2.00 11/14/17 18:05 103.0 103 16 106/62 (77) 93 Nasal Cannula 2.00 11/14/17 17:57 93 2.00 11/14/17 17:57 93 Nasal Cannula 2.00 11/14/17 17:54 103.0 102 16 104/69 (81) 91 Physical Exam GENERAL: This is a well-nourished, well-developed patient, in no apparent distress. SKIN: No rashes, ecchymoses or lesions. Cool and dry. HEAD: Atraumatic. Normocephalic. No temporal or scalp tenderness. EYES: Pupils equal round and reactive. Extraocular motions intact. No scleral icterus. No injection or drainage. ENT: Nose without bleeding, purulent drainage or septal hematoma. Throat without erythema, tonsillar hypertrophy or exudate. Uvula midline. Airway patent. NECK: Trachea midline. No JVD or lymphadenopathy. Supple, nontender, no meningeal signs. CARDIOVASCULAR: Regular rate and rhythm without murmurs, gallops, or rubs. RESPIRATORY: Clear to auscultation. Breath sounds equal bilaterally. No wheezes , rales, or rhonchi. GASTROINTESTINAL: Abdomen soft, non-tender, nondistended. No hepato-splenomegaly , or palpable masses. No guarding. MUSCULOSKELETAL: Extremities without clubbing, cyanosis, or edema. No joint tenderness, effusion, or edema noted. No calf tenderness. Negative Homans sign bilaterally. NEUROLOGICAL: Awake and alert. Cranial nerves II through XII intact. Motor and sensory grossly within normal limits. Five out of 5 muscle strength in all muscle groups. Normal speech. Laboratory Laboratory Tests Test 11/14/17 17:40 11/14/17 20:00 11/15/17 07:16 White Blood Count 8.5 8.4 Red Blood Count 4.12 3.64 Hemoglobin 12.4 10.9 Hematocrit 37.3 33.4 Mean Corpuscular Volume 90.5 91.7 Mean Corpuscular Hemoglobin 30.2 30.0 Mean Corpuscular Hemoglobin Concent 33.3 32.7 Red Cell Distribution Width 13.0 13.2 Platelet Count 347 302 Mean Platelet Volume 6.5 6.5 Neutrophils (%) (Auto) 78.6 72.9 Lymphocytes (%) (Auto) 10.8 14.9 Monocytes (%) (Auto) 4.6 6.6 Eosinophils (%) (Auto) 5.8 5.3 Basophils (%) (Auto) 0.2 0.3 Neutrophils # (Auto) 6.7 6.1 Lymphocytes # (Auto) 0.9 1.3 Monocytes # (Auto) 0.4 0.6 Eosinophils # (Auto) 0.5 0.4 Basophils # (Auto) 0.0 0.0 CBC Comment DIFF FINAL DIFF FINAL Differential Comment Prothrombin Time 9.6 Prothromb Time International Ratio 0.9 Activated Partial Thromboplast Time 27.3 Blood Urea Nitrogen 19 Creatinine 0.86 Random Glucose 104 Total Protein 7.5 Albumin 3.4 Calcium Level 9.0 Alkaline Phosphatase 109 Aspartate Amino Transf (AST/SGOT) 29 Alanine Aminotransferase (ALT/SGPT) 39 Total Bilirubin 0.3 Sodium Level 131 Potassium Level 4.5 Chloride Level 97 Carbon Dioxide Level 24.5 Anion Gap 10 Estimat Glomerular Filtration Rate 66 Lactic Acid Level 1.7 Lipase 197 Urine Color STRAW Urine Turbidity CLEAR Urine pH 5.5 Urine Specific [place] 1.022 Urine Protein NEG Urine Glucose (UA) NEG Urine Ketones NEG Urine Occult Blood TRACE Urine Nitrite NEG Urine Bilirubin NEG Urine Leukocyte Esterase NEG Urine RBC 0-3 Urine WBC 0-2 Urine Squamous Epithelial Cells 0-5 Urine Bacteria NONE Microscopic Urinalysis Comment CULT NOT INDICATED Date/Time Source Procedure Growth Status 11/14/17 17:45 Blood Peripheral Aerobic Blood Culture Pending Received 11/14/17 17:45 Blood Peripheral Anaerobic Blood Culture Pending Received 11/14/17 17:45 Nasal Washing Influenza Types A,B Antigen (JJ) - Final NEGATIVE FOR FLU A AND B ANTIGEN.... Complete Result Diagram: 11/15/17 0716 11/14/17 [address] Angiography 11/14/17 1908 Signed Impressions: Service Date/Time: Tuesday, November 14, 2017 19:26 - CONCLUSION: 1. No evidence of pulmonary emboli 2. New mild streaky interstitial opacities throughout both lungs which may be infectious or represent pulmonary edema. Toby Ramirez MD Abdomen/Pelvis CT 11/14/17 1831 Signed Impressions: Service Date/Time: Tuesday, November 14, 2017 19:26 - CONCLUSION: 1. Nonspecific, nonobstructive bowel gas pattern which may represent a mild ileus or gastroenteritis. 2. Mild streaky opacity in both lung bases. Please see CT pulmonary angiogram from this date for further details. Toby Ramirez MD Chest X-Ray 11/14/17 1740 Signed Impressions: Service Date/Time: Tuesday, November 14, 2017 17:46 - CONCLUSION: 1. No acute abnormality or significant interval change. Ashish Sims MD Septic Shock Reassessment Septic shock perfusion: reassessment completed Caprini VTE Risk Assessment Caprini VTE Risk Assessment: Mod/High Risk (score >= 2) Caprini Risk Assessment Model Point Value = 1 Point Value = 2 Point Value = 3 Point Value = 5 Age 41-60 Minor surgery BMI > 25 kg/m2 Swollen legs Varicose veins or History of unexplained or recurrent spontaneous Oral contraceptives or hormone replacement Sepsis (< 1 month) Serious lung disease, including pneumonia (< 1 month) Abnormal pulmonary function Acute myocardial infarction Congestive heart failure (< 1 month) History of inflammatory bowel disease Medical patient at bed rest Age 61-74 Arthroscopic surgery Major open surgery (> 45 min) Laparoscopic surgery (> 45 min) Malignancy Confined to bed (> 72 hours) Immobilizing plaster cast Central venous access Age >= 75 History of VTE Family history of VTE Factor V Leiden Prothrombin [id number] Lupus anticoagulant Anticardiolipin antibodies Elevated serum homocysteine Heparin-induced thrombocytopenia Other congenital or acquired thrombophilia Stroke (< 1 month) Elective arthroplasty Hip, pelvis, or leg fracture Acute spinal cord injury (< 1 month) Prophylaxis Regimen Total Risk Factor Score Risk Level Prophylaxis Regimen 0-1 Low Early ambulation 2 Moderate Order ONE of the following: *Sequential Compression Device (SCD) *Heparin 5000 units SQ BID 3-4 Higher Order ONE of the following medications: *Heparin 5000 units SQ TID *Enoxaparin/Lovenox 40 mg SQ daily (WT < 150 kg, CrCl > 30 mL/min) *Enoxaparin/Lovenox 30 mg SQ daily (WT < 150 kg, CrCl > 10-29 mL/min) *Enoxaparin/Lovenox 30 mg SQ BID (WT < 150 kg, CrCl > 30 mL/min) AND/OR *Sequential Compression Device (SCD) 5 or more Highest Order ONE of the following medications: *Heparin 5000 units SQ TID (Preferred with Epidurals) *Enoxaparin/Lovenox 40 mg SQ daily (WT < 150 kg, CrCl > 30 mL/min) *Enoxaparin/Lovenox 30 mg SQ daily (WT < 150 kg, CrCl > 10-29 mL/min) *Enoxaparin/Lovenox 30 mg SQ BID (WT < 150 kg, CrCl > 30 mL/min) AND *Sequential Compression Device (SCD) Assessment and Plan Assessment and Plan Ms. Raines is a 67-year-old female patient with a known medical history of HTN , hyperlipidemia and IBS who presented to the ED with complaints of sudden onset of fever and chills x 1 day. Bilateral community-acquired pneumonia with presence of fever, chills, cough x 1 day Meets sepsis criteria (tachycardia and fever TMAX 103) CXR reviewed showing no acute abnormality. CT angiography reviewed showing no PE. New mild streaky interstitial opacities throughout both lungs which may be infectious or represent pulmonary edema. WBC WNL. Fevers have resolved. CBC and BMP reviewed and essentially unremarkable. UA negative. Influenza negative. Blood cultures obtained and negative to date. Continue to follow growth. Status post 2 L NS bolus in ED. Continue IVF. Encourage PO intake and hydration as tolerated. Placed on Azithromycin and Ceftriaxone IV. Continue Symbicort inhaler. Will start on Guaifenesin for cough. Control pain due to cough, [place] PO available PRN per pain scale. Duonebs available PRN as needed for SOB/wheezing. Mild Ileus vs gastroenteritis with associated nausea and vomiting Abdominal/Pelvis CT reviewed showing nonspecific, nonobstructive bowel gas pattern which may represent a mild ileus or gastroenteritis. Supportive care. Encourage PO intake as tolerated. Hypertension, chronic: Will continue home medications, BP mildly elevated. Continue to monitor BP trends. Hyperlipidemia, chronic: Continue home statin. Chronic herpes: Continue home Acyclovir GI prophylaxis: Protonix. DVT Prophylaxis: SCDs. This note was transcribed by MUSA Avila. I, Dr. Layla Zurita personally performed the history, physical exam, and medical decision making; and confirmed the accuracy of the information in the transcribed note. Authenticated by Dr. Layla Zurita on 11/15/17 at 09:10. Physician Certification 2 Midnight Certification Type: Admission for Inpatient Services Order for Inpatient Services The services are ordered in accordance with Medicare regulations or non- Medicare payer requirements, as applicable. In the case of services not specified as inpatient-only, they are appropriately provided as inpatient services in accordance with the 2-midnight benchmark. Estimated LOS (days): 3 3 days is the estimated time the patient will need to remain in the hospital, assuming treatment plan goals are met and no additional complications. Post-Hospital Plan: Not yet determined Problem Qualifiers (1) Sepsis: Qualified Codes: A41.9 - Sepsis, unspecified organism Martha Weber Nov 15, 2017 09:15 Layla Zurita MD Nov 15, 2017 13:37
[2017-11-15] MEDS: ACYCLOVIR 200 MG CAP PO SCH ×2 (09:25→21:57)
[2017-11-15] MEDS: PANTOPRAZOLE SOD 20 MG DELAYED RELEASE TAB PO SCH ×2 (09:25→21:56)
[2017-11-15] MEDS: DICYCLOMINE HCL 10 MG CAP PO SCH ×4 (09:25→21:55)
[2017-11-15] MEDS: ASPIRIN 81 MG CHEW TAB CHEW SCH (09:25)
[2017-11-15] MEDS: DOCUSATE SODIUM 50 MG/SENNA 8.6 MG TAB PO SCH ×2 (09:25→21:56)
[2017-11-15] MEDS: LOSARTAN 50 MG TAB PO SCH (09:26)
[2017-11-15] MEDS: guaiFENesin E.R. 600 MG TAB PO SCH ×2 (09:26→21:56)
[2017-11-15] MEDS: ACETAMINOPHEN/HYDROcodone 325 MG/5 MG TAB PO PRN ×2 (13:12→21:57)
[2017-11-15] MEDS: SERTRALINE HCL 50 MG TAB PO SCH (21:56)
[2017-11-15] MEDS: PRAVASTATIN SOD 10 MG TAB PO SCH (21:56)
[2017-11-15] MEDS: GABAPENTIN 100 MG CAP PO SCH (21:56)
[2017-11-15] MEDS: MONTELUKAST SODIUM 10 MG TAB PO SCH (21:56)
[2017-11-15] MEDS: AZITHROMYCIN INJ 500 MG in SODIUM CHLOR 0.9% 250 ML INJ 250 ML IV SCH (23:17)
[2017-11-16] VITALS: BP 115/57; PULSE 75; RESP 18; TEMP 98.8; O2SAT 90
[2017-11-16] MEDS: cefTRIAXone INJ 1,000 MG in SODIUM CHLORIDE 0.9% INJ 100 ML IV SCH ×3 (00:37→22:15)
[2017-11-16] MEDS: BUDESONIDE-FORMOTEROL 160/4.5 MCG INHALER INH SCH ×3 (00:54→20:36)
[2017-11-16] MEDS: SODIUM CHLOR 0.9% 1000 ML INJ 1,000 ML IV SCH ×3 (06:21→22:15)
[2017-11-16 08:00] VITALS: BP 144/70; PULSE 70; RESP 20; TEMP 98.1; O2SAT 92
[2017-11-16] MEDS: INSULIN ASPART SUPPLEMENTAL SCALE SQ SCH ×4 (08:00→20:35)
[2017-11-16 08:08] LABS: AUTOMATED NEUTROPHIL # 4.3 TH/MM3 (1.8-7.7); BASOPHIL % 0.4 % (0.0-2.0); EOSINOPHIL # 0.4 TH/MM3 (0-0.4); EOSINOPHIL % 6.1 % (0.0-4.0); HEMOGLOBIN 10.7 GM/DL (11.6-15.3); LYMPH % 16.6 % (9.0-44.0); MEAN CELL VOLUME 91.3 FL (80.0-100.0); MEAN CORPUSCULAR HEMOGLOBIN 29.6 PG (27.0-34.0); MEAN CORPUSCULAR HGB CONC 32.4 % (32.0-36.0); MEAN PLATELET VOLUME 6.2 FL (7.0-11.0); MONO % 8.2 % (0.0-8.0); MONOCYTE # 0.5 TH/MM3 (0-0.9); NEUT % 68.7 % (16.0-70.0); PLATELET COUNT 319 TH/MM3 (150-450); RED BLOOD COUNT 3.61 MIL/MM3 (4.00-5.30); RED CELL DISTRIBUTION WIDTH 13.1 % (11.6-17.2); WHITE BLOOD COUNT 6.2 TH/MM3 (4.0-11.0)
[2017-11-16 08:30] LABS: BICARBONATE 26.9 MEQ/L (21.0-32.0); CALCIUM 8.3 MG/DL (8.5-10.1)
[2017-11-16 08:33] LABS: CREATININE 0.5 MG/DL (0.50-1.00)
[2017-11-16] MEDS: SODIUM CHLORIDE 0.9% FLUSH 10 ML FLUSH IV FLUSH SCH ×2 (09:00→20:35)
--- NOTE | 2017-11-16 09:02 | HHI.PR ---
Subjective Remarks Spikes of fever 101 overnight. With fever and chills overnight. Positive cough brownish in color sometimes blood in it. No chest pain. Shortness of breath intermittently. No nausea or vomiting no diarrhea or constipation. Tolerates food Objective Vitals Vital Signs Date Time Temp Pulse Resp B/P (MAP) Pulse Ox O2 Delivery O2 Flow Rate FiO2 11/16/17 08:00 98.1 70 20 144/70 (94) 92 11/16/17 00:00 98.8 75 18 115/57 (76) 90 11/15/17 20:00 101.4 88 21 140/65 (90) 94 11/15/17 20:00 87 11/15/17 15:50 97.9 80 20 126/61 (82) 91 11/15/17 14:12 18 11/15/17 11:50 96.6 79 20 124/60 (81) 94 I/O 11/15/17 11/15/17 11/15/17 11/16/17 11/16/17 11/16/17 07:00 15:00 23:00 07:00 15:00 23:00 Intake Total 930 ml 960 ml 1590 ml Output Total 1400 ml Balance 930 ml 960 ml 190 ml Intake Oral 240 ml 960 ml 240 ml IV Total 690 ml 1350 ml Output Urine Total 1400 ml # Voids 6 7 # Bowel Movements 0 0 Result Diagram: 11/16/17 0747 11/16/17 [address] Angiography 11/14/17 1908 Signed Impressions: Service Date/Time: Tuesday, November 14, 2017 19:26 - CONCLUSION: 1. No evidence of pulmonary emboli 2. New mild streaky interstitial opacities throughout both lungs which may be infectious or represent pulmonary edema. Toby Ramirez MD Abdomen/Pelvis CT 11/14/17 1831 Signed Impressions: Service Date/Time: Tuesday, November 14, 2017 19:26 - CONCLUSION: 1. Nonspecific, nonobstructive bowel gas pattern which may represent a mild ileus or gastroenteritis. 2. Mild streaky opacity in both lung bases. Please see CT pulmonary angiogram from this date for further details. Toby Ramirez MD Chest X-Ray 11/14/17 1740 Signed Impressions: Service Date/Time: Tuesday, November 14, 2017 17:46 - CONCLUSION: 1. No acute abnormality or significant interval change. Ashish Sims MD Objective Remarks GENERAL: This is a well-nourished, well-developed patient, in no apparent distress. CARDIOVASCULAR: Regular rate and rhythm without murmurs, gallops, or rubs. RESPIRATORY: Clear to auscultation. Breath sounds equal bilaterally. No wheezes , rales, or rhonchi. GASTROINTESTINAL: Abdomen soft, non-tender, nondistended. No hepato-splenomegaly , or palpable masses. No guarding. MUSCULOSKELETAL: Extremities without clubbing, cyanosis, or edema. No joint tenderness, effusion, or edema noted. No calf tenderness. Negative Homans sign bilaterally. NEUROLOGICAL: Awake and alert. Cranial nerves II through XII intact. Motor and sensory grossly within normal limits. Five out of 5 muscle strength in all muscle groups. Normal speech. A/P Problem List: (1) Sepsis ICD Code: A41.9 - Sepsis, unspecified organism Status: Acute Assessment and Plan Ms. Raines is a 67-year-old female patient with a known medical history of HTN , hyperlipidemia and IBS who presented to the ED with complaints of sudden onset of fever and chills x 1 day. Bilateral community-acquired pneumonia with presence of fever, chills, cough x 1 day Meets sepsis criteria (tachycardia and fever TMAX 103) CXR reviewed showing no acute abnormality. CT angiography reviewed showing no PE. New mild streaky interstitial opacities throughout both lungs which may be infectious or represent pulmonary edema. WBC WNL. Fevers have resolved. CBC and BMP reviewed and essentially unremarkable. UA negative. Influenza negative. Blood cultures obtained and negative to date. Continue to follow growth. Status post 2 L NS bolus in ED. Continue IVF. Encourage PO intake and hydration as tolerated. Placed on Azithromycin and Ceftriaxone IV. Continue Symbicort inhaler. Guaifenesin for cough. Control pain due to cough, [place] PO available PRN per pain scale. Duonebs available PRN as needed for SOB/wheezing. Mild Ileus vs gastroenteritis with associated nausea and vomiting Abdominal/Pelvis CT reviewed showing nonspecific, nonobstructive bowel gas pattern which may represent a mild ileus or gastroenteritis. Supportive care. Encourage PO intake as tolerated. Hypertension, chronic: Will continue home medications, BP mildly elevated. Continue to monitor BP trends. Hyperlipidemia, chronic: Continue home statin. Chronic herpes: Continue home Acyclovir Insomnia: restoril as need GI prophylaxis: Protonix. DVT Prophylaxis: SCDs. Discharge plan pending improvement 101 F fevers overnight, DC 1-2 days Problem Qualifiers (1) Sepsis: Qualified Codes: A41.9 - Sepsis, unspecified organism Layla Zurita MD Nov 16, 2017 09:02
[2017-11-16] MEDS: guaiFENesin E.R. 600 MG TAB PO SCH ×2 (09:16→20:56)
[2017-11-16] MEDS: ACYCLOVIR 200 MG CAP PO SCH ×2 (09:16→20:55)
[2017-11-16] MEDS: DOCUSATE SODIUM 50 MG/SENNA 8.6 MG TAB PO SCH ×2 (09:17→20:55)
[2017-11-16] MEDS: ASPIRIN 81 MG CHEW TAB CHEW SCH (09:17)
[2017-11-16] MEDS: DICYCLOMINE HCL 10 MG CAP PO SCH ×4 (09:17→20:54)
[2017-11-16] MEDS: PANTOPRAZOLE SOD 20 MG DELAYED RELEASE TAB PO SCH ×2 (09:17→20:56)
[2017-11-16] MEDS: FLUTICASONE PROPIONATE 50 MCG/ACT 16 GM NASAL SPRAY EACH NARE SCH ×2 (09:18→20:36)
[2017-11-16] MEDS: LOSARTAN 50 MG TAB PO SCH (09:18)
[2017-11-16] MEDS: ACETAMINOPHEN/HYDROcodone 325 MG/5 MG TAB PO PRN (09:26)
[2017-11-16 12:00] VITALS: BP 133/68; PULSE 75; RESP 20; TEMP 98.8; O2SAT 90
--- NOTE | 2017-11-16 13:09 | EKG ---
Date Performed: 11/14/2017 Time Performed: 17:35:03 PTAGE: 67 years EKG: SINUS TACHYCARDIA LOW QRS VOLTAGE IN PRECORDIAL LEADS Compared to prior tracing no signific ant change ABNORMAL RHYTHM ECG PREVIOUS TRACING : 08/19/2017 02.09 DOCTOR: Valeriano Mcdermott Interpretating Date/Time 11/16/2017 13:07:09
[2017-11-16] MEDS: ACETAMINOPHEN/HYDROcodone 325 MG/10 MG TAB PO PRN ×3 (13:52→22:38)
[2017-11-16 16:00] VITALS: BP 134/77; PULSE 71; RESP 20; TEMP 99; O2SAT 93
[2017-11-16 20:32] VITALS: BP 141/65; PULSE 83; RESP 20; TEMP 99.4; O2SAT 96
[2017-11-16] MEDS: AZITHROMYCIN INJ 500 MG in SODIUM CHLOR 0.9% 250 ML INJ 250 ML IV SCH (20:39)
[2017-11-16] MEDS: MONTELUKAST SODIUM 10 MG TAB PO SCH (20:54)
[2017-11-16] MEDS: PRAVASTATIN SOD 10 MG TAB PO SCH (20:55)
[2017-11-16] MEDS: SERTRALINE HCL 50 MG TAB PO SCH (20:55)
[2017-11-16] MEDS: GABAPENTIN 100 MG CAP PO SCH (20:55)
[2017-11-17] VITALS (7 sets, daily range): BP systolic 102–139; BP diastolic 56–65; PULSE 78–84; RESP 15–20; TEMP 97–100; O2SAT 85–98
[2017-11-17] MEDS: TEMAZEPAM 15 MG CAP PO PRN ×2 (00:30→22:47)
[2017-11-17] MEDS: INSULIN ASPART SUPPLEMENTAL SCALE SQ SCH ×4 (08:00→21:05)
[2017-11-17] MEDS: SODIUM CHLOR 0.9% 1000 ML INJ 1,000 ML IV SCH ×2 (08:29→12:29)
[2017-11-17] MEDS: SODIUM CHLORIDE 0.9% FLUSH 10 ML FLUSH IV FLUSH SCH ×2 (09:00→20:55)
[2017-11-17] MEDS: guaiFENesin E.R. 600 MG TAB PO SCH ×2 (09:34→20:55)
[2017-11-17] MEDS: DICYCLOMINE HCL 10 MG CAP PO SCH ×4 (09:34→20:55)
[2017-11-17] MEDS: DOCUSATE SODIUM 50 MG/SENNA 8.6 MG TAB PO SCH ×2 (09:35→20:55)
[2017-11-17] MEDS: ASPIRIN 81 MG CHEW TAB CHEW SCH (09:35)
[2017-11-17] MEDS: LOSARTAN 50 MG TAB PO SCH (09:35)
[2017-11-17] MEDS: ACYCLOVIR 200 MG CAP PO SCH ×2 (09:35→20:54)
[2017-11-17] MEDS: PANTOPRAZOLE SOD 20 MG DELAYED RELEASE TAB PO SCH ×2 (09:36→20:55)
[2017-11-17] MEDS: BUDESONIDE-FORMOTEROL 160/4.5 MCG INHALER INH SCH ×2 (09:40→20:55)
[2017-11-17] MEDS: FLUTICASONE PROPIONATE 50 MCG/ACT 16 GM NASAL SPRAY EACH NARE SCH ×2 (09:40→20:55)
[2017-11-17] MEDS: ACETAMINOPHEN/HYDROcodone 325 MG/10 MG TAB PO PRN ×3 (09:46→21:05)
--- NOTE | 2017-11-17 12:28 | HHI.PR ---
Subjective Remarks Follow up PNA. Patient seen and examined, lying in bed on 2 LNC. Complaints of continued generalized weakness and shortness of breath with exertion. TMAX 99.5 overnight. Poor appetite although has been trying to eat. Denies any abdominal pain, n/v/d or dysuria. Objective Vitals Vital Signs Date Time Temp Pulse Resp B/P (MAP) Pulse Ox O2 Delivery O2 Flow Rate FiO2 11/17/17 08:49 99.5 78 16 139/65 (89) 94 11/17/17 00:00 97.0 84 20 102/58 (73) 85 11/16/17 20:32 99.4 83 20 141/65 (90) 96 11/16/17 16:00 99.0 71 20 134/77 (96) 93 I/O 11/16/17 11/16/17 11/16/17 11/17/17 11/17/17 11/17/17 07:00 15:00 23:00 07:00 15:00 23:00 Intake Total 1590 ml 1540 ml 350 ml 2486 ml Output Total 1400 ml Balance 190 ml 1540 ml 350 ml 2486 ml Intake Oral 240 ml 1540 ml 240 ml IV Total 1350 ml 350 ml 2246 ml Output Urine Total 1400 ml # Voids 3 4 # Bowel Movements 0 1 1 Result Diagram: 11/16/17 0747 11/16/17 [address] Angiography 11/14/17 1908 Signed Impressions: Service Date/Time: Tuesday, November 14, 2017 19:26 - CONCLUSION: 1. No evidence of pulmonary emboli 2. New mild streaky interstitial opacities throughout both lungs which may be infectious or represent pulmonary edema. Toby Ramirez MD Abdomen/Pelvis CT 11/14/17 1831 Signed Impressions: Service Date/Time: Tuesday, November 14, 2017 19:26 - CONCLUSION: 1. Nonspecific, nonobstructive bowel gas pattern which may represent a mild ileus or gastroenteritis. 2. Mild streaky opacity in both lung bases. Please see CT pulmonary angiogram from this date for further details. Toby Ramirez MD Chest X-Ray 11/14/17 1740 Signed Impressions: Service Date/Time: Tuesday, November 14, 2017 17:46 - CONCLUSION: 1. No acute abnormality or significant interval change. Ashish Sims MD Objective Remarks GENERAL: This is a well-nourished, well-developed patient, on 2 L NC SKIN: No rashes, ecchymoses or lesions. Cool and dry. HEAD: Atraumatic. Normocephalic. EYES: Pupils equal round and reactive. Extraocular motions intact. No scleral icterus. No injection or drainage. ENT: Nose without bleeding, purulent drainage or septal hematoma. Throat without erythema, tonsillar hypertrophy or exudate. Uvula midline. Airway patent. NECK: Trachea midline. No JVD or lymphadenopathy. Supple, nontender, no meningeal signs. CARDIOVASCULAR: Regular rate and rhythm without murmurs, gallops, or rubs. RESPIRATORY: Diminished breath sounds in lower lung cannon. Breath sounds equal bilaterally. No wheezes, rales, or rhonchi. GASTROINTESTINAL: Abdomen soft, non-tender, nondistended. No guarding. MUSCULOSKELETAL: Extremities without clubbing, cyanosis, or edema. No joint tenderness, effusion, or edema noted. NEUROLOGICAL: Awake and alert. Cranial nerves II through XII intact. Motor and sensory grossly within normal limits. Five out of 5 muscle strength in all muscle groups. Normal speech. A/P Problem List: (1) Sepsis ICD Code: A41.9 - Sepsis, unspecified organism Status: Acute Assessment and Plan Ms. Raines is a 67-year-old female patient with a known medical history of HTN , hyperlipidemia and IBS who presented to the ED with complaints of sudden onset of fever and chills x 1 day. Bilateral community-acquired pneumonia with presence of fever, chills, cough x 1 day Meets sepsis criteria (tachycardia and fever TMAX 103) CXR reviewed showing no acute abnormality. CT angiography reviewed showing no PE. New mild streaky interstitial opacities throughout both lungs which may be infectious or represent pulmonary edema. WBC WNL. Fevers have resolved. CBC and BMP reviewed and essentially unremarkable. UA negative. Influenza negative. Blood cultures obtained and negative to date. Status post 2 L NS bolus in ED. Continue IVF. Encourage PO intake and hydration as tolerated. Placed on Azithromycin and Ceftriaxone IV. Continue Symbicort inhaler. Guaifenesin for cough. Control pain due to cough, [place] PO available PRN per pain scale. Duonebs available PRN as needed for SOB/wheezing. Mild Ileus vs gastroenteritis with associated nausea and vomiting Abdominal/Pelvis CT reviewed showing nonspecific, nonobstructive bowel gas pattern which may represent a mild ileus or gastroenteritis. Supportive care. Encourage PO intake as tolerated. Hypertension, chronic: Will continue home medications, BP mildly elevated. Continue to monitor BP trends. Hyperlipidemia, chronic: Continue home statin. Chronic herpes: Continue home Acyclovir Insomnia: Restoril as needed GI prophylaxis: Protonix. DVT Prophylaxis: SCDs. Attending Statement The exam, history, and the medical decision-making described in the above note were completed with the assistance of the mid-level provider. I reviewed and agree with the findings presented. I attest that I had a [id number] encounter with the patient on the same day, and personally performed and documented my assessment and findings in the medical record. Patient seen and evaluated. Still pretty weak and feels poorly, low-grade temperature of 100 Sodium improved. Tolerating antibiotics well Care plan discussed with patient and nursing team Problem Qualifiers (1) Sepsis: Qualified Codes: A41.9 - Sepsis, unspecified organism Martha Weber Nov 17, 2017 12:28 Nelly Leon MD Nov 17, 2017 13:28
[2017-11-17] MEDS ORDERED: BENZONATATE 100 MG CAP PO PRN (16:00)
[2017-11-17] MEDS: RESP: ALBUTEROL 2.5 MG/IPRATROPIUM 0.5 MG NEB (PRN) NEB (20:24)
[2017-11-17] MEDS: AZITHROMYCIN INJ 500 MG in SODIUM CHLOR 0.9% 250 ML INJ 250 ML IV SCH (20:54)
[2017-11-17] MEDS: SERTRALINE HCL 50 MG TAB PO SCH (20:55)
[2017-11-17] MEDS: MONTELUKAST SODIUM 10 MG TAB PO SCH (20:55)
[2017-11-17] MEDS: GABAPENTIN 100 MG CAP PO SCH (20:55)
[2017-11-17] MEDS: PRAVASTATIN SOD 10 MG TAB PO SCH (20:55)
[2017-11-17] MEDS: cefTRIAXone INJ 1,000 MG in SODIUM CHLORIDE 0.9% INJ 100 ML IV SCH (22:12)
[2017-11-18] VITALS (7 sets, daily range): BP systolic 118–146; BP diastolic 57–67; PULSE 78–86; RESP 18–22; TEMP 97.3–99.8; O2SAT 92–95
[2017-11-18] MEDS: SODIUM CHLOR 0.9% 1000 ML INJ 1,000 ML IV SCH (00:22)
[2017-11-18] MEDS: ACETAMINOPHEN/HYDROcodone 325 MG/10 MG TAB PO PRN ×3 (03:13→21:12)
[2017-11-18] MEDS: INSULIN ASPART SUPPLEMENTAL SCALE SQ SCH ×4 (08:00→21:00)
[2017-11-18] MEDS: RESP: ALBUTEROL 2.5 MG/IPRATROPIUM 0.5 MG NEB (PRN) NEB (08:19)
[2017-11-18] MEDS: SODIUM CHLORIDE 0.9% FLUSH 10 ML FLUSH IV FLUSH SCH ×2 (09:00→20:56)
[2017-11-18] MEDS: FLUTICASONE PROPIONATE 50 MCG/ACT 16 GM NASAL SPRAY EACH NARE SCH ×2 (09:51→21:14)
[2017-11-18] MEDS: ACYCLOVIR 200 MG CAP PO SCH ×2 (09:52→20:55)
[2017-11-18] MEDS: guaiFENesin E.R. 600 MG TAB PO SCH ×2 (09:52→20:56)
[2017-11-18] MEDS: LOSARTAN 50 MG TAB PO SCH (09:52)
[2017-11-18] MEDS: PANTOPRAZOLE SOD 20 MG DELAYED RELEASE TAB PO SCH ×2 (09:52→20:56)
[2017-11-18] MEDS: DICYCLOMINE HCL 10 MG CAP PO SCH ×4 (09:52→20:56)
[2017-11-18] MEDS: DOCUSATE SODIUM 50 MG/SENNA 8.6 MG TAB PO SCH ×2 (09:52→20:56)
[2017-11-18] MEDS: ASPIRIN 81 MG CHEW TAB CHEW SCH (09:52)
[2017-11-18] MEDS: BUDESONIDE-FORMOTEROL 160/4.5 MCG INHALER INH SCH ×2 (09:52→21:14)
--- NOTE | 2017-11-18 12:59 | HHI.PR ---
Subjective Remarks Patient seen and evaluated today in follow-up for severe pneumonia with sepsis. Doing better today although hypoxemic at 82%. No further fevers. Incentive spirometry use and plantar toilet discussed with patient and spouse at the bedside Objective Vitals Vital Signs Date Time Temp Pulse Resp B/P (MAP) Pulse Ox O2 Delivery O2 Flow Rate FiO2 11/18/17 08:26 2.00 11/18/17 08:20 94 Nasal Cannula 2.00 11/18/17 08:00 97.6 83 22 123/63 (83) 92 11/18/17 00:00 99.8 82 18 130/62 (84) 95 11/17/17 20:25 96 Nasal Cannula 2.00 11/17/17 20:00 100.0 84 20 135/60 (85) 94 11/17/17 18:33 99.8 80 16 138/56 (83) 92 11/17/17 15:03 98 Nasal Cannula 2.00 I/O 11/17/17 11/17/17 11/17/17 11/18/17 11/18/17 11/18/17 07:00 15:00 23:00 07:00 15:00 23:00 Intake Total 2486 ml 1000 ml 1550 ml 1000 ml 1000 ml Balance 2486 ml 1000 ml 1550 ml 1000 ml 1000 ml Intake Oral 240 ml 1200 ml IV Total 2246 ml 1000 ml 350 ml 1000 ml 1000 ml # Voids 4 4 # Bowel Movements 1 Result Diagram: 11/16/1747 11/16/17 0747 Objective Remarks GENERAL: This is a well-nourished, well-developed patient, feels ill CARDIOVASCULAR: Regular rate and rhythm without murmurs, gallops, or rubs. RESPIRATORY: Decreased air flow bilaterally with scattered crackles GASTROINTESTINAL: Abdomen soft, non-tender, nondistended. Normal active bowel sounds MUSCULOSKELETAL: Extremities without clubbing, cyanosis, or edema. NEURO: Alert & Oriented x4 to person, place, time, situation. Moves all ext x4 A/P Problem List: (1) Sepsis ICD Code: A41.9 - Sepsis, unspecified organism Status: Acute Plan: Secondary to bilateral pneumonia, continue Rocephin and azithromycin Follow-up for hypoxemia at 82%. Continue with pulmonary toilet/incentive spirometry DC IV fluids and diurese as needed (2) Diabetes mellitus type 2 in nonobese ICD Code: E11.9 - Type 2 diabetes mellitus without complications Plan: Continue current treatment plan Assessment and Plan lmwh Discharge Planning 1-2 days pending progress Follow for walk testing prior to discharge Problem Qualifiers (1) Sepsis: Qualified Codes: A41.9 - Sepsis, unspecified organism Nelly Leon MD Nov 18, 2017 12:59
[2017-11-18] MEDS: methylPREDNISolone SOD SUCC 40 MG/1 ML VIAL IV PUSH SCH ×2 (13:18→20:55)
[2017-11-18] MEDS: ENOXAPARIN SODIUM 40 MG/0.4 ML SYRINGE SQ SCH (13:19)
[2017-11-18] MEDS: RESP: ALBUTEROL 2.5 MG/IPRATROPIUM 0.5 MG NEB (SCH) NEB ×2 (14:25→19:51)
[2017-11-18] MEDS: AZITHROMYCIN INJ 500 MG in SODIUM CHLOR 0.9% 250 ML INJ 250 ML IV SCH (20:54)
[2017-11-18] MEDS: MONTELUKAST SODIUM 10 MG TAB PO SCH (20:56)
[2017-11-18] MEDS: SERTRALINE HCL 50 MG TAB PO SCH (20:56)
[2017-11-18] MEDS: PRAVASTATIN SOD 10 MG TAB PO SCH (20:56)
[2017-11-18] MEDS: GABAPENTIN 100 MG CAP PO SCH (20:56)
[2017-11-18] MEDS: cefTRIAXone INJ 1,000 MG in SODIUM CHLORIDE 0.9% INJ 100 ML IV SCH (22:40)
[2017-11-18] MEDS: TEMAZEPAM 15 MG CAP PO PRN (22:55)
[2017-11-19 08:00] VITALS: BP 133/63; PULSE 71; RESP 20; TEMP 97.7; O2SAT 94
[2017-11-19] MEDS: INSULIN ASPART SUPPLEMENTAL SCALE SQ SCH ×4 (08:00→21:59)
[2017-11-19] MEDS: RESP: ALBUTEROL 2.5 MG/IPRATROPIUM 0.5 MG NEB (SCH) NEB ×3 (08:13→19:59)
[2017-11-19 08:15] VITALS: O2SAT 93
[2017-11-19] MEDS ORDERED: OXYGENDME NAS.CANULA (10:30)
[2017-11-19 12:00] VITALS: BP 158/65; PULSE 68; RESP 20; TEMP 96.9; O2SAT 94
[2017-11-19] MEDS: guaiFENesin E.R. 600 MG TAB PO SCH ×2 (12:23→21:40)
[2017-11-19] MEDS: PANTOPRAZOLE SOD 20 MG DELAYED RELEASE TAB PO SCH ×2 (12:23→21:41)
[2017-11-19] MEDS: ACETAMINOPHEN/HYDROcodone 325 MG/10 MG TAB PO PRN ×2 (12:23→22:35)
[2017-11-19] MEDS: ACYCLOVIR 200 MG CAP PO SCH ×2 (12:24→21:41)
[2017-11-19] MEDS: DICYCLOMINE HCL 10 MG CAP PO SCH ×4 (12:24→21:40)
[2017-11-19] MEDS: LOSARTAN 50 MG TAB PO SCH (12:24)
[2017-11-19] MEDS: ASPIRIN 81 MG CHEW TAB CHEW SCH (12:25)
[2017-11-19] MEDS: methylPREDNISolone SOD SUCC 40 MG/1 ML VIAL IV PUSH SCH ×2 (12:25→21:39)
[2017-11-19] MEDS: ENOXAPARIN SODIUM 40 MG/0.4 ML SYRINGE SQ SCH (12:36)
[2017-11-19] MEDS: DOCUSATE SODIUM 50 MG/SENNA 8.6 MG TAB PO SCH ×2 (12:40→21:40)
[2017-11-19] MEDS: BUDESONIDE-FORMOTEROL 160/4.5 MCG INHALER INH SCH ×2 (12:41→21:36)
[2017-11-19] MEDS: FLUTICASONE PROPIONATE 50 MCG/ACT 16 GM NASAL SPRAY EACH NARE SCH ×2 (12:41→21:36)
[2017-11-19] MEDS: SODIUM CHLORIDE 0.9% FLUSH 10 ML FLUSH IV FLUSH SCH ×2 (12:42→21:38)
--- NOTE | 2017-11-19 13:39 | HHI.PR ---
Subjective Remarks Patient seen and evaluated in follow-up for bilateral pneumonia with respiratory failure. Improved somewhat, more ambulatory with physical therapy today. No new events overnight. Failed walk study Objective Vitals Vital Signs Date Time Temp Pulse Resp B/P (MAP) Pulse Ox O2 Delivery O2 Flow Rate FiO2 11/19/17 12:00 96.9 68 20 158/65 (96) 94 11/19/17 08:15 93 Nasal Cannula 2.00 11/19/17 08:00 97.7 71 20 133/63 (86) 94 11/18/17 23:55 97.3 82 20 118/57 (77) 93 11/18/17 20:00 98.1 86 20 128/59 (82) 94 11/18/17 19:55 94 Nasal Cannula 2.00 I/O 11/18/17 11/18/17 11/18/17 11/19/17 11/19/17 11/19/17 07:00 15:00 23:00 07:00 15:00 23:00 Intake Total 1000 ml 1850 ml 830 ml 580 ml Balance 1000 ml 1850 ml 830 ml 580 ml Intake Oral 850 ml 580 ml 480 ml IV Total 1000 ml 1000 ml 250 ml 100 ml # Voids 4 1 4 # Bowel Movements 0 0 Result Diagram: 11/16/17 0747 11/16/17 [address] Angiography 11/14/17 1908 Signed Impressions: Service Date/Time: Tuesday, November 14, 2017 19:26 - CONCLUSION: 1. No evidence of pulmonary emboli 2. New mild streaky interstitial opacities throughout both lungs which may be infectious or represent pulmonary edema. Toby Ramirez MD Abdomen/Pelvis CT 11/14/17 1831 Signed Impressions: Service Date/Time: Tuesday, November 14, 2017 19:26 - CONCLUSION: 1. Nonspecific, nonobstructive bowel gas pattern which may represent a mild ileus or gastroenteritis. 2. Mild streaky opacity in both lung bases. Please see CT pulmonary angiogram from this date for further details. Toby Ramirez MD Chest X-Ray 11/14/17 1740 Signed Impressions: Service Date/Time: Tuesday, November 14, 2017 17:46 - CONCLUSION: 1. No acute abnormality or significant interval change. Ashish Sims MD Objective Remarks GENERAL: This is a well-nourished, well-developed patient, feels ill CARDIOVASCULAR: Regular rate and rhythm without murmurs, gallops, or rubs. RESPIRATORY: Decreased air flow bilaterally with scattered crackles GASTROINTESTINAL: Abdomen soft, non-tender, nondistended. Normal active bowel sounds MUSCULOSKELETAL: Extremities without clubbing, cyanosis, or edema. NEURO: Alert & Oriented x4 to person, place, time, situation. Moves all ext x4 A/P Problem List: (1) Sepsis ICD Code: A41.9 - Sepsis, unspecified organism Status: Acute Plan: improving Secondary to bilateral pneumonia, continue Rocephin and azithromycin Follow-up for hypoxemia at 82% failed walk test). Continue with pulmonary toilet/incentive spirometry (2) Diabetes mellitus type 2 in nonobese ICD Code: E11.9 - Type 2 diabetes mellitus without complications Plan: Continue current treatment plan controlled Assessment and Plan lmwh Discharge Planning 1-2 days pending progress hhc, o2 Problem Qualifiers (1) Sepsis: Qualified Codes: A41.9 - Sepsis, unspecified organism Nelly Leon MD Nov 19, 2017 13:39
--- NOTE | 2017-11-19 13:40 | HHI.FF ---
Face to Face Verification Diagnosis: (1) Pneumonia (2) Hypoxia Occupational Therapy Order: Evaluate and Treat, Gross motor coordination Home Health Nursing Order: Medical education Oxygen administration education I have seen patient Norma Raines on 11/19/17. My clinical findings support the need for the requested home health care services because: Patient has SOB Deconditioned w/ increased weakness I certify that my clinical findings support that this patient is homebound because: Unsteady gait/balance Nelly Leon MD Nov 19, 2017 13:40
[2017-11-19 16:00] VITALS: BP 134/81; PULSE 75; RESP 22; TEMP 97; O2SAT 92
[2017-11-19 20:00] VITALS: BP 139/68; PULSE 73; RESP 20; TEMP 96.5; O2SAT 95
[2017-11-19] MEDS: AZITHROMYCIN INJ 500 MG in SODIUM CHLOR 0.9% 250 ML INJ 250 ML IV SCH (21:38)
[2017-11-19] MEDS: GABAPENTIN 100 MG CAP PO SCH (21:40)
[2017-11-19] MEDS: PRAVASTATIN SOD 10 MG TAB PO SCH (21:40)
[2017-11-19] MEDS: MONTELUKAST SODIUM 10 MG TAB PO SCH (21:41)
[2017-11-19] MEDS: SERTRALINE HCL 50 MG TAB PO SCH (21:41)
[2017-11-19] MEDS: TEMAZEPAM 15 MG CAP PO PRN (22:32)
[2017-11-19] MEDS: cefTRIAXone INJ 1,000 MG in SODIUM CHLORIDE 0.9% INJ 100 ML IV SCH (23:14)
[2017-11-20] VITALS: BP 123/60; PULSE 78; RESP 20; TEMP 97.1; O2SAT 95
[2017-11-20 07:32] VITALS: O2SAT 93
[2017-11-20] MEDS: RESP: ALBUTEROL 2.5 MG/IPRATROPIUM 0.5 MG NEB (SCH) NEB (07:32)
[2017-11-20 08:00] VITALS: BP 139/67; PULSE 72; RESP 20; TEMP 97.5; O2SAT 95
[2017-11-20] MEDS: INSULIN ASPART SUPPLEMENTAL SCALE SQ SCH ×2 (08:00→12:00)
[2017-11-20] MEDS: methylPREDNISolone SOD SUCC 40 MG/1 ML VIAL IV PUSH SCH (08:21)
[2017-11-20] MEDS: guaiFENesin E.R. 600 MG TAB PO SCH (08:22)
[2017-11-20] MEDS: ACYCLOVIR 200 MG CAP PO SCH (08:22)
[2017-11-20] MEDS: LOSARTAN 50 MG TAB PO SCH (08:22)
[2017-11-20] MEDS: ACETAMINOPHEN/HYDROcodone 325 MG/10 MG TAB PO PRN ×2 (08:22→12:49)
[2017-11-20] MEDS: DOCUSATE SODIUM 50 MG/SENNA 8.6 MG TAB PO SCH (08:22)
[2017-11-20] MEDS: ASPIRIN 81 MG CHEW TAB CHEW SCH (08:22)
[2017-11-20] MEDS: PANTOPRAZOLE SOD 20 MG DELAYED RELEASE TAB PO SCH (08:23)
[2017-11-20] MEDS: SODIUM CHLORIDE 0.9% FLUSH 10 ML FLUSH IV FLUSH SCH (08:23)
[2017-11-20] MEDS: FLUTICASONE PROPIONATE 50 MCG/ACT 16 GM NASAL SPRAY EACH NARE SCH (08:23)
[2017-11-20] MEDS: DICYCLOMINE HCL 10 MG CAP PO SCH (08:23)
[2017-11-20] MEDS: BUDESONIDE-FORMOTEROL 160/4.5 MCG INHALER INH SCH (08:23)
[2017-11-20] MEDS ORDERED: WALKER WHEELS/F1 MIS (09:59)
[2017-11-20] MEDS ORDERED: CEFI5CAP PO (10:55)
--- NOTE | 2017-11-20 10:57 | HHI.DS ---
Discharge Summary Admission Date Nov 14, 2017 at 20:33 Discharge Date: Nov 20, 2017 Admitting Diagnosis Sepsis, Pneumonia, Hypoxia (1) Sepsis ICD Code: A41.9 - Sepsis, unspecified organism Status: Acute (2) Diabetes mellitus type 2 in nonobese ICD Code: E11.9 - Type 2 diabetes mellitus without complications Procedures none Brief History - From Admission Written by Martha Weber, acting as scribe for Dr. Zurita on 11/15/17 at 09:10. Ms. Raines is a 67-year-old female patient with a known medical history of HTN , hyperlipidemia and IBS who presented to the ED with complaints of sudden onset of fever and chills x 1 day. Patient states that yesterday during the afternoon she noticed sudden chills and fever, TMAX at home was 103. She does admit to feeling tired and weak for one week. Has had a nonproductive cough with associated right sided chest discomfort, worse with deep inspiration. Denies any radiation of pain, characterizes the pain as "soreness". Denies any vomiting. Does admit to nausea but has resolved now. Denies any recent hemoptysis. Patient states she has been caring for her mother who has also been hospitalized with similar symptoms. She states she has been taking Tylenol for the muscle aches, fever and fatigue with little relief. At time of assessment patient does complain of weakness and fatigue. Does complain of current fever and diaphoresis. Continued cough, producing right sided chest pain. Has been eating and drinking today, denies any nausea or vomiting. Denies any rash. Denies any dysuria. CBC/BMP: 11/16/17 0747 11/16/[address] Angiography 11/14/17 1908 Signed Impressions: Service Date/Time: Tuesday, November 14, 2017 19:26 - CONCLUSION: 1. No evidence of pulmonary emboli 2. New mild streaky interstitial opacities throughout both lungs which may be infectious or represent pulmonary edema. Toby Ramirez MD Abdomen/Pelvis CT 11/14/17 1831 Signed Impressions: Service Date/Time: Tuesday, November 14, 2017 19:26 - CONCLUSION: 1. Nonspecific, nonobstructive bowel gas pattern which may represent a mild ileus or gastroenteritis. 2. Mild streaky opacity in both lung bases. Please see CT pulmonary angiogram from this date for further details. Toby Ramirez MD Chest X-Ray 11/14/17 1740 Signed Impressions: Service Date/Time: Tuesday, November 14, 2017 17:46 - CONCLUSION: 1. No acute abnormality or significant interval change. Ashish Sims MD PE at Discharge GENERAL: This is a well-nourished, well-developed patient, feels ill CARDIOVASCULAR: Regular rate and rhythm without murmurs, gallops, or rubs. RESPIRATORY: Decreased air flow bilaterally with scattered crackles GASTROINTESTINAL: Abdomen soft, non-tender, nondistended. Normal active bowel sounds MUSCULOSKELETAL: Extremities without clubbing, cyanosis, or edema. NEURO: Alert & Oriented x4 to person, place, time, situation. Moves all ext x4 Pt update on day of discharge This patient is seen in follow-up for discharge planning today. Discharge plans discussed with patient, case management as well as physical therapy. Hospital Course Patient was seen and evaluated in follow-up for pneumonia with respiratory failure. She required IV antibiotics as well as oxygen. Patient did well although she required several days of hospitalization. She required physical therapy. She was discharged home Pt Condition on Discharge: Good Discharge Disposition: Disch w/ Home Health Serv Discharge Time: <= 30 minutes Discharge Instructions DIET: Follow Instructions for: As Tolerated, No Restrictions Activities you can perform: Regular-No Restrictions Follow up Referrals: PCP Follow-up - 1 Week New Medications: Cefixime (Suprax) 400 Mg Cap 400 MG PO DAILY for Infection, #7 CAP 0 Refills Oxygen (O2) (Oxygen (O2)) Device LITER MARICRUZ.CANULA CONTINUOUS for Prevent Hypoxemia, #2 Oxygen Concentrator Portable Gaseous 2 L/min via Nasal Canula Continuous For 99 months Walker with Front Wheels (Walker with Front Wheels) 1 Mis Mis EA .ROUTE DIRECTED, #1 0 Refills Continued Medications: Acyclovir (Bulk) (Acyclovir) 1 Pow Pow 400 MG PO BID Aspirin (Aspirin Low Dose) 81 Mg Chew 81 MG CHEW DAILY, TAB [address] (Aspir-81) 81 Mg Tabdr 1 TAB PO DIRECTED EVERY DAY EXCEPT FRIDAY AND FRIDAY. Budesonide Neb (Budesonide Neb) 0.5 Mg/2 Ml Neb 0.5 MG NEB DAILY NEB for Breathing Treatment, #30 NEBULE 0 Refills Coenzyme Q10 (Ubidecarenone) (Coq10) 50 Mg Cap 100 MG PO DAILY Dicyclomine (Dicyclomine) 10 Mg Cap 10 MG PO QID for Bowel Management, CAP 0 Refills Estradiol Vaginal (Estrace Vaginal) 0.01% Cream 1 APPL VAGINAL HS for Estrogen Supplements, #1 TUBE 0 Refills Fluticasone Nasal Calypso (Fluticasone Nasal Calypso) 50 Mcg/Act Naspr 50 MCG EACH NARE BID for Allergy Management, #1 BOTTLE 0 Refills 50 mcg/spray Gabapentin (Gabapentin) 100 Mg Cap 300 MG PO HS, #90 CAP 0 Refills Losartan (Losartan) 100 Mg Tab 100 MG PO DAILY for Blood Pressure Management, #30 TAB 0 Refills Lovastatin (Lovastatin) 10 Mg Tab 20 MG PO HS for Cholesterol Management, #30 TAB 0 Refills Metformin (Metformin) 500 Mg Tab 500 MG PO BIDPC for Blood Sugar Management, #60 TAB 0 Refills With meals Montelukast (Montelukast) 10 Mg Tab 10 MG PO HS, #30 TAB 0 Refills Omeprazole (Omeprazole) 20 Mg Cap 20 MG PO BID Sertraline (Sertraline) 50 Mg Tab 100 MG PO HS, #30 TAB 0 Refills Nelly Leon MD Nov 20, 2017 10:57
[2017-11-20 12:00] VITALS: BP 137/72; PULSE 67; RESP 20; TEMP 96.4; O2SAT 98
== END 2017-11-20 13:02 | disposition home health service (06) | DRG 871 ==
LOC: PHED 17:25 → PHEDA 20:33 → PH3B 22:43
PROVIDERS: ADMIT Hospitalist; ATTEND Hospitalist
DX: A41.9 Sepsis, unspecified organism (principal); J18.9 Pneumonia, unspecified organism; J96.91 Respiratory failure, unspecified with hypoxia; D68.52 Prothrombin gene mutation; F40.240 Claustrophobia; J45.909 Unspecified asthma, uncomplicated; M19.042 Primary osteoarthritis, left hand; M19.041 Primary osteoarthritis, right hand; K21.9 Gastro-esophageal reflux disease without esophagitis; K58.9 Irritable bowel syndrome, unspecified; E11.9 Type 2 diabetes mellitus without complications; E78.00 Pure hypercholesterolemia, unspecified; I10 Essential (primary) hypertension; F32.9 Major depressive disorder, single episode, unspecified; E78.5 Hyperlipidemia, unspecified; B00.9 Herpesviral infection, unspecified; G47.00 Insomnia, unspecified; R11.2 Nausea with vomiting, unspecified; Z90.710 Acquired absence of both cervix and uterus
CPT/HCPCS: 71010; 71275; 74177; 80048; 80053; 81001; 82948; 83605; 83690; 85025; 85610; 85730; 87040; 87804; 93005; 94150; 94618; 94640; 94664; 96361; 96374; 96375; J0456; J0696; J1650; J1815; J2405; J2920; J7030; J7050; Q9967